=== PATIENT | female | born 1960 | race Caucasian/White ===

== ENCOUNTER 2022-07-27 08:48 | Day surgery (SDC) | payer OTHER ==
[~2022-07-27 08:48] MED LIST: LACTATED RINGERS 1,000 ML IV SCH; LIDOCAINE 1% (10MG/ML) FOR IV START INTRADERMA PRN
[2022-07-27 09:23] VITALS: TEMP 97.7
[2022-07-27] MEDS ORDERED: PROPOFOL 10 MG/ML 20 ML VIAL IV ONE (09:48)
[2022-07-27] MEDS ORDERED: LIDOCAINE 2% INJ 20 MG/ML (2 ML VIAL) ONE (09:48)
--- NOTE | 2022-07-27 10:04 | P.PCN ---
Date of Procedure: 07/27/22 Procedure(s) Performed: BRIEF HISTORY: Patient is a 62-year-old, pleasant, female scheduled for an upper endoscopy as a part of evaluation of long-standing history of GERD. She was on omeprazole 20 mg daily but recently hasn't resume progressively getting worse he was increased to 20 mg twice daily and symptoms are better controlled she is scheduled for an upper endoscopy to accommodate reflux disease PROCEDURE PERFORMED: Esophagogastroduodenoscopy With biopsy PREOPERATIVE DIAGNOSIS: Long-standing history of GERD IV sedation per anesthesia. PROCEDURE: After informed consent was obtained, the patient was brought into the endoscopy unit. IV sedation was administered by Anesthesia under continuous monitoring. Initially the Olympus GIF-140 video endoscope was inserted into the mouth. Esophagus intubated without any difficulty. It was gradually advanced into the stomach and duodenum and carefully examined. The bulb and the second part of the duodenum appeared normal. The scope at this time was withdrawn to the stomach, adequately insufflated with air, and upon careful examination, mucosa of the antrum, body, cardia and the fundus appeared normal. The scope was then withdrawn into the esophagus. The GE junction was located at 35 cm from the incisors. small hiatal hernia noted. There were 3 short tongues of Weinberg's appearing mucosa extending to 3 mm proximal to the GE junction which was biopsied. Also there where superficial erosions in the distal esophagus consistent with LA grade B reflux esophagitis. Rest of esophagus appeared normal and the patient tolerated the procedure IMPRESSION: 1. 3 small tongues of Weinberg's appearing mucosa just proximal to the GE junction and extending to 3 cm proximally status post multiple biopsies 2. Small hiatal hernia 3. Erosions in the distal esophagus consistent with LA grade B reflux esophageal. RECOMMENDATIONS: The findings of this examination were discussed with the patient as well as a family. She was advised to follow with the biopsy results. If the biopsy confirms the presence of Weinberg's esophagus he can have a repeat upper endoscopy in 3 years. In the meantime she will continue with omeprazole 20 mg twice daily and follow antireflux measures. She was advised to follow up in office in 3 months..
[2022-07-27 10:12] VITALS: RESP 16
[2022-07-27 10:32] VITALS: BP 135/83; PULSE 67
== END 2022-07-27 10:49 | disposition home or self-care (01) ==
LOC: ORWHC2ENDO 08:48
PROVIDERS: ATTEND Internal Medicine Gastroenterology
DX: K31.89 Other diseases of stomach and duodenum (principal); K31.A0 Gastric intestinal metaplasia, unspecified; K21.00 Gastro-esophageal reflux disease with esophagitis, without bleeding; K44.9 Diaphragmatic hernia without obstruction or gangrene; I10 Essential (primary) hypertension; J45.909 Unspecified asthma, uncomplicated; E03.9 Hypothyroidism, unspecified; Z88.2 Allergy status to sulfonamides; Z79.890 Hormone replacement therapy; Z79.51 Long term (current) use of inhaled steroids; Z79.899 Other long term (current) drug therapy
CPT/HCPCS: 88305; 43239; J2704; J2001

== ENCOUNTER → 2022-10-17 | Outpatient (CLI) | payer OTHER ==
[2022-10-17 22:57] LABS: ALT 32 U/L (8-49); AST 22 U/L (13-35); Albumin 4.5 d/dL (3.8-4.9); Albumin/Globulin Ratio 1.96 Ratio (1.60-3.17); Alkaline Phosphatase 98 U/L (41-126); Calcium 9.8 mg/dL (8.7-10.3); Carbon Dioxide 26.5 mmol/L (21.6-31.8); Chloride 106 mmol/L (96-109); Globulin 2.3 d/dL (1.6-3.3); Glucose 99 mg/dL (70-110); Potassium 4.6 mmol/L (3.5-5.5); Sodium 145 mmol/L (135-145); Total Bilirubin 0.4 mg/dL (0.3-1.2); Total Protein 6.8 d/dL (6.2-8.2)
[2022-10-17 23:16] LABS: MCH 28.3 pg (27.0-32.0); MCHC 31.8 d/dL (32.0-37.0); MCV 89.1 FL (80.0-97.0); NRBC Per 100 WBC 0 X 10*3/uL (0.00-0.01); Platelet Count 269 X 10*3/uL (140-440); RBC 4.94 X 10*6/uL (4.10-5.60); RDW 12.8 % (11.5-14.5); WBC 6.41 X 10*3/uL (4.50-10.00)
== END | disposition home or self-care (01) ==
LOC: LABWHC1 14:40
PROVIDERS: ATTEND Surgery
DX: E66.01 Morbid (severe) obesity due to excess calories (principal); E55.9 Vitamin D deficiency, unspecified
CPT/HCPCS: 36415; 80053; 82306; 82607; 82746; 84425; 85027

== ENCOUNTER → 2022-10-17 | Outpatient (CLI) | payer OTHER ==
[2022-10-17 14:22] VITALS: BP 142/94; PULSE 80; TEMP 98.2; BMI 36.3
--- NOTE | 2022-11-14 08:46 | P.HPBAR ---
Bariatric H&P - History & Physicial H&P Date: 10/17/22 History & Physicial: Visit/CC: new patient consult Patient initial contact: Initial weight: Initial weight in pounds: Height: 5 ft 2.5 in Initial BMI: Last weight: Current weight: 91.626 kg Current weight in pounds: 202.00 Current BMI: 36.3 [place] body weight (based on NIH guidelines): 51.029 kg Excess body weight loss: The patient is a 62 year-old F who presents for Bariatric Assessment. This is a 62-year-old female who's had lifetime problems obesity. The patient wishes undergo gastric sleeve surgery. Patient that she's been unable to lose weight and conservative fashion. The patient has an excellent understanding of sleeve gastrectomy. She understands the risks and benefits of procedure including gastric injury, sleeve scarring perforation or obstruction. 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, History of Any Multi-Drug Resistant Organisms: None Reported Past Surgical History: Adenoidectomy, Appendectomy, Tonsillectomy Additional Past Surgical History / Comment(s): ectopic pregnanacy x2 d&c laprascopic surgery, colonoscopy Past Anesthesia/Blood Transfusion Reactions: No Reported Reaction Past Psychological History: Depression Smoking Status: Former smoker Past Alcohol Use History: Rare Additional Past Alcohol Use History / Comment(s): quit 1992 Past Drug Use History: None Reported Surgical - Exam Vital Signs Temp Pulse BP 98.2 F 80 142/94 10/17/22 14:15 10/17/22 14:15 10/17/22 14:15 - General well developed, well nourished, no distress - Eyes PERRL - ENT normal pinna - Neck no masses - Respiratory normal expansion - Cardiovascular Rhythm: regular - Abdomen Abdomen: soft, non tender Bariatric Assessment & Plan Plan: Morbid obesity. Patient be scheduled for EGD. She will follow-up after this is performed. Bariatric Checklist Checklist: Plan: Checklist: EGD: 1. Hiatal hernia: 2. H. Pylori: HgbA1c: Vitamin D: Smoking: Primary care physician referral: [facility] Psychiatry clearance: Cardiology clearance: Sleep study: Diet journal: VTE risk score: VTE risk level: Rehab needs at discharge:
== END ==
LOC: BARWHC3 13:52
PROVIDERS: ATTEND Surgery
DX: E66.01 Morbid (severe) obesity due to excess calories (principal); J45.909 Unspecified asthma, uncomplicated; I10 Essential (primary) hypertension; K21.9 Gastro-esophageal reflux disease without esophagitis; E07.9 Disorder of thyroid, unspecified; Z68.36 Body mass index [BMI] 36.0-36.9, adult; Z98.84 Bariatric surgery status; Z88.2 Allergy status to sulfonamides; Z79.890 Hormone replacement therapy; Z79.899 Other long term (current) drug therapy; Z79.51 Long term (current) use of inhaled steroids; Z87.891 Personal history of nicotine dependence
CPT/HCPCS: 99212

== ENCOUNTER 2022-11-21 12:53 | Day surgery (SDC) | payer OTHER ==
[2022-11-16 15:31] VITALS: BMI 36.3
[~2022-11-21 12:53] MED LIST changes: -LACTATED RINGERS 1,000 ML IV SCH
[2022-11-21 13:17] VITALS: RESP 16; TEMP 97.7
[2022-11-21] MEDS: LACTATED RINGERS 1,000 ML IV SCH ×2 (13:20→13:39)
[2022-11-21] MEDS ORDERED: PROPOFOL 10 MG/ML 20 ML VIAL IV ONE (13:39)
[2022-11-21] MEDS ORDERED: LIDOCAINE 2% INJ 20 MG/ML (2 ML VIAL) ONE (13:39)
--- NOTE | 2022-11-21 13:44 | P.GSHP ---
History of Present Illness H&P Date: 11/21/22 Chief Complaint: morbid obesity GERD this is a 62-year-old female presents today for EGD. Patient underwent workup for sleeve gastrectomy. Her BMI is 36. She's had complaints of GERD. 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 vertigo History of Any Multi-Drug Resistant Organisms: None Reported Past Surgical History: Adenoidectomy, Appendectomy, Tonsillectomy Additional Past Surgical History / Comment(s): ectopic pregnanacy x2, d&c, laparoscopic surgery, colonoscopies Past Anesthesia/Blood Transfusion Reactions: No Reported Reaction Additional Past Anesthesia/Blood Transfusion Reaction / Comment(s): hx of vertigo Past Psychological History: Depression Smoking Status: Former smoker Past Alcohol Use History: Rare Additional Past Alcohol Use History / Comment(s): quit 1992 Past Drug Use History: None Reported Medications and Allergies Home Medications Medication Instructions Recorded Confirmed Type Cetirizine HCl 10 mg PO DAILY 07/22/22 11/16/22 History Ergocalciferol (Vitamin D2) 1,250 mcg PO WEEKLY 07/22/22 11/16/22 History [Drisdol (50,000 Iu)] Levothyroxine Sodium [Synthroid] 50 mcg PO DAILY 07/22/22 11/16/22 History Omeprazole 20 mg PO DAILY 07/22/22 11/16/22 History amLODIPine [Norvasc] 5 mg PO DAILY 07/22/22 11/16/22 History lisinopriL [Zestril] 10 mg PO DAILY 07/22/22 11/16/22 History Allergies Allergy/AdvReac Type Severity Reaction Status Date / Time Sulfa (Sulfonamide Allergy Rash/Hives Verified 11/16/22 15:26 Antibiotics) Surgical - Exam Vital Signs Temp Pulse Resp BP Pulse Ox 97.7 F 75 16 139/66 99 11/21/22 13:11 11/21/22 13:11 11/21/22 13:11 11/21/22 13:11 11/21/22 13:11 - General well developed, well nourished, no distress - Eyes PERRL - ENT normal pinna - Neck no masses - Respiratory normal expansion - Cardiovascular Rhythm: regular - Abdomen Abdomen: soft, non tender Assessment and Plan Assessment: GERD, morbid obese. We'll perform EGD.
--- NOTE | 2022-11-21 13:51 | P.OP ---
Date of Procedure: 11/21/22 Preoperative Diagnosis: GERD Morbid obesity Postoperative Diagnosis: antral gastritis Hiatal hernia Morbid obesity Procedure(s) Performed: EGD Anesthesia: MAC Surgeon: Kaushal Mead Pathology: other (antrum) Condition: stable Disposition: PACU Description of Procedure: the patient's placed on the endoscopy table in the lateral position. she received IV sedation. The gastroscope placed oropharynx passed in the esophagus and stomach. Scope then placed through the pylorus. The first and second p ortion of the duodenum appeared normal. Scope was then brought back the antrum was mildly inflamed. A biopsies performed. The scope was then retroflexed and this appeared normal. The patient had a moderate size hiatal hernia. The GE junction was at 38 cm. The distal esophagus appeared mildly inflamed. the proximal esophagus appeared normal. Scope withdrawn for patient.
[2022-11-21 13:54] VITALS: PULSE 72
[2022-11-21 14:05] VITALS: BP 108/70
== END 2022-11-21 14:47 | disposition home or self-care (01) ==
LOC: ORWHC2ENDO 12:53
PROVIDERS: ATTEND Surgery
DX: K29.50 Unspecified chronic gastritis without bleeding (principal); K21.9 Gastro-esophageal reflux disease without esophagitis; K44.9 Diaphragmatic hernia without obstruction or gangrene; J45.909 Unspecified asthma, uncomplicated; M19.90 Unspecified osteoarthritis, unspecified site; E66.01 Morbid (severe) obesity due to excess calories; Z68.36 Body mass index [BMI] 36.0-36.9, adult; Z90.89 Acquired absence of other organs; Z87.891 Personal history of nicotine dependence; Z79.899 Other long term (current) drug therapy
CPT/HCPCS: 88305; 88342; 43239; J2704; J2001

== ENCOUNTER → 2022-12-12 | Outpatient (CLI) | payer OTHER ==
[2022-12-12 14:42] VITALS: BP 141/85; PULSE 87; TEMP 98.2; BMI 36.5
--- NOTE | 2022-12-12 14:43 | P.HPBAR ---
Bariatric H&P - History & Physicial H&P Date: 12/12/22 History & Physicial: Visit/CC: Patient initial contact: Initial weight: Initial weight in pounds: Height: 5 ft 2.5 in Initial BMI: Last weight: Current weight: 92.079 kg Current weight in pounds: Current BMI: [place] body weight (based on NIH guidelines): Excess body weight loss: The patient is a 62 year-old F who presents for Bariatric Assessment. Patient resents today bariatric presurgical consultation. Patient has completed most of her insurance requirements. Her BMI is 37. Patient scheduled to come to a diet class. Patient is an excellent understanding of sleeve gastrectomy. When over the risks and benefits of the procedure. 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, History of Any Multi-Drug Resistant Organisms: None Reported Past Surgical History: Adenoidectomy, Appendectomy, Tonsillectomy Additional Past Surgical History / Comment(s): ectopic pregnanacy x2 d&c laprascopic surgery, colonoscopy Past Anesthesia/Blood Transfusion Reactions: No Reported Reaction Past Psychological History: Depression Smoking Status: Former smoker Past Alcohol Use History: Rare Additional Past Alcohol Use History / Comment(s): quit 1992 Past Drug Use History: None Reported Surgical - Exam - General well developed, well nourished, no distress - Eyes PERRL - ENT normal pinna, normal nares Bariatric Assessment & Plan Plan: Morbid obesity. BMI 37 37. Patient will be Scheduled for sleeve gastrectomy Bariatric Checklist Checklist: Plan: Checklist: EGD: 1. Hiatal hernia: 2. H. Pylori: HgbA1c: Vitamin D: Smoking: Primary care physician referral: [facility] Psychiatry clearance: Cardiology clearance: Sleep study: Diet journal: VTE risk score: VTE risk level: Rehab needs at discharge:
== END ==
LOC: BARWHC3 14:25
PROVIDERS: ATTEND Surgery
DX: E66.01 Morbid (severe) obesity due to excess calories (principal); J45.909 Unspecified asthma, uncomplicated; K21.9 Gastro-esophageal reflux disease without esophagitis; I10 Essential (primary) hypertension; E07.9 Disorder of thyroid, unspecified; Z79.899 Other long term (current) drug therapy; Z87.891 Personal history of nicotine dependence; Z98.84 Bariatric surgery status; Z68.37 Body mass index [BMI] 37.0-37.9, adult; Z88.2 Allergy status to sulfonamides; Z79.890 Hormone replacement therapy
CPT/HCPCS: 99211

== ENCOUNTER → 2023-01-02 | Outpatient (CLI) | payer OTHER ==
[2023-01-02 11:22] VITALS: BMI 36.8
== END ==
LOC: BARWHC3 08:44
PROVIDERS: ATTEND Surgery
DX: E66.01 Morbid (severe) obesity due to excess calories (principal); Z71.3 Dietary counseling and surveillance; Z68.36 Body mass index [BMI] 36.0-36.9, adult; Z88.2 Allergy status to sulfonamides
CPT/HCPCS: 97804

== ENCOUNTER 2023-01-16 12:56 | Emergency (ER) | payer OTHER ==
[2023-01-16 13:08] VITALS: BP 170/88; PULSE 85; RESP 16; TEMP 98.1
--- NOTE | 2023-01-16 13:31 | XR ---
EXAMINATION TYPE: XR wrist complete LT DATE OF EXAM: 01/16/2023 1:25 PM INDICATION: Patient age:Female; 62 years old; Reason for study: fall; [facility]. COMPARISON: None TECHNIQUE: 4 views of the left wrist. Frontal, navicular, lateral, and oblique. FINDINGS: No dislocation. Acute comminuted impacted fracture of the distal radial metaphysis extendin g into the epiphysis. There is intra-articular extension with shortening. Soft tissue edema identifie d of the wrist. No radiopaque foreign body. IMPRESSION: Acute comminuted fracture of the distal left radius.
--- NOTE | 2023-01-16 14:39 | ED ---
Upper Extremity HPI - General Chief Complaint: Extremity Injury, Upper Stated Complaint: fall- L wrist injury Time Seen by Provider: 01/16/23 14:29 Source: patient, RN notes reviewed Mode of arrival: ambulatory Limitations: no limitations - History of Present Illness Initial Comments: 62-year-old female presents emergency from chief complaint left wrist pain. She states she fell on December 31 states that it was very swollen but has improved but states she still has pain. Patient denies any other injury states it hurts to move at times. Patient states she's never had this evaluated. - Related Data Home Medications Medication Instructions Recorded Confirmed Cetirizine HCl 10 mg PO DAILY 07/22/22 12/12/22 Ergocalciferol (Vitamin D2) 1,250 mcg PO WEEKLY 07/22/22 12/12/22 [Drisdol (50,000 Iu)] Levothyroxine Sodium [Synthroid] 50 mcg PO DAILY 07/22/22 12/12/22 Omeprazole 20 mg PO DAILY 07/22/22 12/12/22 amLODIPine [Norvasc] 5 mg PO DAILY 07/22/22 12/12/22 lisinopriL [Zestril] 10 mg PO DAILY 07/22/22 12/12/22 Allergies Allergy/AdvReac Type Severity Reaction Status Date / Time Sulfa (Sulfonamide Allergy Rash/Hives Verified 01/16/23 13:06 Antibiotics) Review of Systems ROS Statement: Those systems with pertinent positive or pertinent negative responses have been documented in the HPI. ROS Other: All systems not noted in ROS Statement are negative. 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, History of Any Multi-Drug Resistant Organisms: None Reported Past Surgical History: Adenoidectomy, Appendectomy, Tonsillectomy Additional Past Surgical History / Comment(s): ectopic pregnanacy x2 d&c laprascopic surgery, colonoscopy Past Anesthesia/Blood Transfusion Reactions: No Reported Reaction Past Psychological History: Depression Smoking Status: Former smoker Past Alcohol Use History: Rare Past Drug Use History: None Reported General Exam Limitations: no limitations General appearance: alert, in no apparent distress Head exam: Present: atraumatic, normocephalic, normal inspection Respiratory exam: Present: normal lung sounds bilaterally. Absent: respiratory distress, wheezes, rales, rhonchi, stridor Cardiovascular Exam: Present: regular rate, normal rhythm, normal heart sounds. Absent: systolic murmur, diastolic murmur, rubs, gallop, clicks Extremities exam: Present: other (Left distal radius there is tenderness with palpation, mild swelling noted neurovascular intact) Course Vital Signs 01/16/23 13:06 Temperature 98.1 F Pulse Rate 85 Respiratory 16 Rate Blood Pressure 170/88 O2 Sat by Pulse 98 Oximetry Procedures - Orthopedic Splinting/Casting Injury #1 Side: left Upper Extremity Injury Location: short arm, wrist Upper Extremity Immobilizer: volar splint, synthetic pre-padded splint Additional Comments: Neurovascular intact before and after procedure Medical Decision Making - Medical Decision Making Was pt. sent in by a medical professional or institution (Dr. PA, COACH OPERATOR, urgent care, hospital, or half-way...) When possible be specific @ -No Did you speak to anyone other than the patient for history (EMS, parent, family, police, friend...)? What history was obtained from this source @ -No Did you review nursing and triage notes (agree or disagree)? Why? @ -I reviewed and agree with nursing and triage notes Were old charts reviewed (outside hosp., previous admission, EMS record, old EKG, old radiological studies, urgent care reports/EKG's, half-way records)? Report findings @ -No old charts were reviewed Differential Diagnosis (chest pain, altered mental status, abdominal pain women, abdominal pain men, vaginal bleeding, weakness, fever, dyspnea, syncope, headache, dizziness, GI bleed, back pain, seizure, CVA, palpatations, mental health, musculoskeletal)? @ -Wrist sprain, wrist fracture EKG interpreted by me (3pts min.). @ -None X-rays interpreted by me (1pt min.). @ -X-ray left wrist shows distal radius comminuted fracture CT interpreted by me (1pt min.). @ -None done U/S interpreted by me (1pt. min.). @ -None done What testing was considered but not performed or refused? (CT, X-rays, U/S, labs)? Why? @ -None What meds were considered but not given or refused? Why? @ -None Did you discuss the management of the patient with other professionals (professionals i.e. , PA, COACH OPERATOR, lab, RT, psych nurse, manager social services, gambling monitor, teacher, radiation officer, case management associate)? Give summary @ -No Was smoking cessation discussed for >3mins.? @ -No Was critical care preformed (if so, how long)? @ -No Were there social determinants of health that impacted care today? How? (Homelessness, low income, unemployed, alcoholism, drug addiction, transpo rtation, low edu. Level, literacy, decrease access to med. care, shelter, rehab)? @ -No Was there de-escalation of care discussed even if they declined (Discuss DNR or withdrawal of care, Hospice)? DNR status @ -No What co-morbidities impacted this encounter? (DM, HTN, Smoking, COPD, CAD, Cancer, CVA, ARF, Chemo, Hep., AIDS, mental health diagnosis, sleep apnea, morbid obesity)? @ -None Was patient admitted / discharged? Hospital course, mention meds given and route, prescriptions, significant lab abnormalities, going to OR and other pertinent info. @ -Discharge patient wrist was splinted patient will follow-up with orthopedics return parameters were discussed. Undiagnosed new problem with uncertain prognosis? @ -No Drug Therapy requiring intensive monitoring for toxicity (Heparin, Nitro, Insulin, Cardizem)? @ -No Were any procedures done? @ -Splinting Diagnosis/symptom? @ -Acute distal radius fracture Acute, or Chronic, or Acute on Chronic? @ -Acute Uncomplicated (without systemic symptoms) or Complicated (systemic symptoms)? @ -Uncomplicated Side effects of treatment? @ -No Exacerbation, Progression, or Severe Exacerbation? @ -No Poses a threat to life or bodily function? How? (Chest pain, [place], [place], pneumonia, PE, COPD, DKA, ARF, appy, cholecystitis, CVA, Diverticulitis, Homicidal, Suicidal, threat to staff... and all critical care pts) @ -No Disposition Clinical Impression: Fracture of left distal radius Disposition: HOME SELF-CARE Condition: Stable Instructions (If sedation given, give patient instructions): Arm Fracture in Adults (ED) Additional Instructions: Please return to the Emergency Department if symptoms worsen or any other concerns. Is patient prescribed a controlled substance at d/c from ED?: No Referrals: Farrah Desouza MD [Primary Care Provider] - 1-2 days Juan R Ames DO [Doctor of Osteopathic Medicine] - 1-2 days Time of Disposition: 14:39
== END 2023-01-16 15:10 | disposition home or self-care (01) ==
LOC: EC 12:56
DX: S52.592A Other fractures of lower end of left radius, initial encounter for closed fracture (principal); J45.909 Unspecified asthma, uncomplicated; K21.9 Gastro-esophageal reflux disease without esophagitis; E07.9 Disorder of thyroid, unspecified; F32.A Depression, unspecified; Z87.891 Personal history of nicotine dependence; Z79.890 Hormone replacement therapy; Z79.899 Other long term (current) drug therapy; W19.XXXA Unspecified fall, initial encounter
CPT/HCPCS: 29125; 99284

== ENCOUNTER → 2023-01-17 | Outpatient (CLI) | payer OTHER ==
--- NOTE | 2023-01-17 13:22 | CT ---
EXAMINATION TYPE: CT wrist LT wo con DATE OF EXAM: 01/17/2023 COMPARISON: Plain films 01/16/2023 HISTORY: left wrist pain from fall CT DLP: 149.[address] of the left wrist with reconstruction imaging. TECHNIQUE: Unenhanced CT of the breast was performed with bone and soft tissue window settings submit aj in the axial coronal and sagittal planes. At a separate workstation 3-D TR imaging was obtained. FINDINGS: The graft there is a comminuted distal radial fracture with intra-articular extension. Frac ture fragment with the greatest displacement is seen in a palmar direction with 8mm displacement seen . There is surrounding soft tissue edema. No additional fractures are seen. There is radiocarpal join t space narrowing seen. Intercarpal joint spaces are well preserved. Distal ulna is intact. IMPRESSION: 1. Comminuted and displaced distal radial fracture as discussed.
== END | disposition home or self-care (01) ==
LOC: RADCTMAIN 12:43
PROVIDERS: ATTEND Orthopaedic Surgery Hand Surgery
DX: S52.592A Other fractures of lower end of left radius, initial encounter for closed fracture (principal); W19.XXXA Unspecified fall, initial encounter

== ENCOUNTER → 2023-01-20 | Day surgery (SDC) | payer OTHER ==
--- NOTE | 2023-01-19 11:19 | P.HPOR ---
History of Present Illness H&P Date: 01/19/23 Subjective: This is a 62 year old female that presents today for initial evaluation regarding a left wrist injury that occurred on 12/31/2022 when she fell onto an outstretched hand at a reunion. She noted pain and swelling at the time of the injury, but didn't think much of the injury and had continued pain and limited range of motion over the following weeks and subsequently went to the emergency room tonight after 3 weeks later. She was found to have a distal radius fra cture and was placed in a splint and presents today for initial follow-up. She is 3 weeks out from her injury. She denies any numbness or tingling. Physical Examination: LUE: AIN/PIN/Radial/Ulnar/Median motor intact. Radial/Ulnar/Median SILT. 2+/4 Radial/Ulnar pulses palpated. 5/5 APB, 5/5 FDI. Negative Finkelsteins, negative CMC grind, negative Durkan's compression. Tenderness to palpation over distal radius with bruising and swelling present. Imaging: X-Rays of the left wrist, 3 view reviewed from ED visit on 01/16/2023 demonstrates a comminuted intra-articular distal radius fracture involving the volar lunate facet and radial styloid with displacement. Impression: 1.) Left intra-articular distal radius fracture Plan: Diagnosis and treatment options were discussed with the patient. We discussed she has findings of an unstable left intra-articular distal radius fracture. I recommend surgical intervention. We discussed the complexity of her injury now that she is 3 weeks out from her injury. We discussed she will likely require fragment specific fixation to restore the volar lunate facet as well as radial styloid fragment. 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 CT scan is ordered for pre operative planning. Labs/EKG are ordered. CC: Dr. 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, vertigo, History of Any Multi-Drug Resistant Organisms: None Reported Past Surgical History: Adenoidectomy, Appendectomy, Tonsillectomy Additional Past Surgical History / Comment(s): ectopic pregnanacy x2 d&c laprascopic surgery, colonoscopy x2 Past Anesthesia/Blood Transfusion Reactions: No Reported Reaction Smoking Status: Former smoker Medications and Allergies Home Medications Medication Instructions Recorded Confirmed Type Cetirizine HCl 10 mg PO DAILY 07/22/22 01/18/23 History Ergocalciferol (Vitamin D2) 1,250 mcg PO WEEKLY 07/22/22 01/18/23 History [Drisdol (50,000 Iu)] Levothyroxine Sodium [Synthroid] 50 mcg PO DAILY 07/22/22 01/18/23 History Omeprazole 20 mg PO DAILY 07/22/22 01/18/23 History amLODIPine [Norvasc] 5 mg PO DAILY 07/22/22 01/18/23 History lisinopriL [Zestril] 10 mg PO DAILY 07/22/22 01/18/23 History Meclizine [Antivert] 12.5 mg PO DIRECTED 01/18/23 01/18/23 History Allergies Allergy/AdvReac Type Severity Reaction Status Date / Time Sulfa (Sulfonamide Allergy Rash/Hives Verified 01/18/23 13:05 Antibiotics) Physical Examination Osteopathic Statement: *. No significant issues noted on an osteopathic structural exam other than those noted in the History and Physical/Consult.
[~2023-01-20] MED LIST changes: +DEXAMETHASONE SOD PHOSPHATE 4 MG/ML 1 ML VIAL IV ONE; +DEXAMETHASONE SOD PHOSPHATE 4 MG/ML 1 ML VIAL ONE; +HYDROmorphone (PF) 1 MG/ML ONE; +HYDROmorphone 0.5 MG/0.5 ML SYRINGE IVP PRN; +LACTATED RINGERS 1,000 ML IV ONE; +LACTATED RINGERS 1,000 ML IV SCH; +LIDOCAINE 2% INJ 20 MG/ML (2 ML VIAL) ONE; +MIDAZOLAM 2 MG/2 ML VIAL IV PRN; +MIDAZOLAM 2 MG/2 ML VIAL IVP ONE; +ONDANSETRON 4 MG/2 ML VIAL IVP ONE; +PROPOFOL 10 MG/ML 20 ML VIAL IV ONE; +ROPIVACAINE 5 MG/ML 30 ML VIAL ONE; +SUCCINYLCHOLINE CHLORIDE 200 MG/10 ML VIAL IV ONE; +ceFAZolin 1,000 MG in SODIUM CHLORIDE 0.9% 1,000 ML IRRIGATION ONE; +ePHEDrine 50 MG/ML 1 ML VIAL ONE; +fentaNYL (PF) 50 MCG/ML 2 ML AMP ONE
--- NOTE | 2023-01-20 13:20 | P.ANPRN ---
Procedure Note - Anesthesia - Nerve Block Performed Left Supraclavicular Single Time Out Performed: Yes Date of Procedure: 01/20/23 Procedure Start Time: 12:09 Procedure Stop Time: 12:12 Location of Patient: PreOp Indication: Acute Post-Operative Pain, Requested by Surgeon Sedation Type: Sedate with meaningful contact maintained Preparation: Sterile Prep Position: Supine Needle Types: [place] Needle Gauge: 21 Ultrasound used to visualize needle placement: Yes Ultrasound used to observe medication spread: Yes Blood Aspirated: No Pain Paresthesia on Injection Noted: No Resistance on Injection: Normal Image Stored and Saved: Yes Events: Uneventful and Well Tolerated (Ropivacaine 0.5% 20 mL plus dexamethasone 4 mg)
[2023-01-20 15:28] VITALS: TEMP 97.2
--- NOTE | 2023-01-20 15:45 | P.OP ---
Date of Procedure: 01/20/23 Preoperative Diagnosis: Left intra-articular distal radius fracture Postoperative Diagnosis: Left intra-articular distal radius fracture Procedure(s) Performed: Left intra-articular distal radius fracture open reduction internal fixation, greater than 3 parts. Implants: Arthrex Volar titanium distal radius locking plate, short, narrow. Anesthesia: [facility], regional Surgeon: Sergey Romero Support Group Manager #1: Juvenal Marshall Estimated Blood Loss (ml): 10 Pathology: none sent Condition: stable Disposition: PACU Description of Procedure: This is a 62 year old female who sustained a displaced intra-articular distal radius fracture and presents today for open reduction internal fixation of their left distal radius fracture. Risks and benefits of surgery were discussed with the patient including bleeding, damage to surrounding tissue, infection, need for further surgery as well as risks of anesthesia including pulmonary embolism and even and the patient wished to proceed with surgical intervention. The patients was seen in the pre-operative area by myself. Consent and H&P were completed and updated. The correct extremity was marked in the pre-operative area by myself and all other questions were answered. Operative Narrative: The patient was brought to the operating room by the department of anesthesia. They remained on the portable stretcher and a rolling hand table was brought to the side of the operative extremity. Pre-operative time out was performed indicating the correct patient, procedure and laterality. All in the room agreed. Pre-operative antibiotics were given prior to skin incision. The patient was then drifted off to sleep by the department of anesthesia. A nonsterile tourniquet was then applied to the operative extremity and the left upper extremity was then prepped and draped in normal sterile fashion. The operative extremity was the exsanguinated with an esmarch bandage and the tourniquet was inflated to 250mmHg. A longitudinal incision centered over the FCR tendon was made with a 15-blade scalpel to initiate an extended FCR approach to the distal radius due to the distal location of the fracture. Blunt dissection was taken down to the FCR tendon sheath using Bovie cautery for meticulous hemostasis. The FCR sheath was opened with tenotomy scissors. The floor of the FCR sheath was then incised with a 15-blade scalpel and the FPL tendon and muscle belly was swept bluntly in an ulnar direction to reveal the pronator quadratus. Pronator quadratus was sharply incised with a 15-blade scalpel along the radial border of the distal radius, coming across transversely parallel to the joint at the level of the watershed line, radial artery was identified and protected. Periosteal elevator was then used to elevate the pronator quadratus off the distal radius from a radial to ulnar fashion. There was evidence of a very comminuted radial styloid with 3 main fragments. The brachoradialis tendon was identified and released while protecting the contents of the first dorsal compartment and radial artery to take the deforming force off of the radial styloid fragement. Attention was then drawn to the volar ulnar corner. There was a large intra-articular volar ulnar fragement with displacement and abundant fibrous and early callous tissues. Ronguer, irrigation and suction was used to evacuate the fibrous tissue to debride the fracture fragment to fresh bone. Once the fracture was was clear the fragement was able to be mobilized and with gentle traction the volar ulnar fragment was able to be reduced. A narrow width 3 hole Arthrex titanium volar locking distal radius plate was chosen to fit the patients anatomy best. This was placed on the distal radius under direct visualization and the oblong hole was drilled and filled with a non-locking screw. The fracture was then reduced to the plate distally and a k-wire was placed in the ulnar most k-wire hole in the proximal row and this provided great coverage over the entire volar lunate facet fragment. Fluoroscopy was then utilized to confirm correct placement of plate in the radial/ulnar plane and distal k-wire placement was confirmed to be proximal to the subchondral bone on 20 degree elevated lateral view confirming extra-articular screw placement. Voodoo of radial height, inclination and volar tilt was achieved and the joint line was no longer depressed on the 20 degree elevated lateral view confirming acceptable buttressing of the volar ulnar fragment, the wrist was flexed and extended and the carpus was now stable and no longer volarly subluxed. The distal rows and radial styloid screw holes were then drilled and filled from ulnar to radial with locking screws. Attention was then brought to the proximal shaft screws. Proximal nonlocking and locking shaft screws were drilled, measured, and filled. The wrist joint was the ranged and full smooth flexion/extension with no crepitus appreciated. Final imaging was taken confirming extra-articular placement of distal screws at DRUJ and radiocarpal joint. The wound was then irrigated. Subcutaneous closure was performed with 4-0 monocryl followed by skin closure with running 4-0 monocryl suture. Sterile dressing consisting of steri strips, 4x4s, and a volar plaster splint was applied. Tourniquet was let down and the hand had immediate perfusion. The patient was then woken by the department of anesthesia and ham sferred to PACU in stable condition. Juvenal LEYVA was present for the case and assisted in major portions of the operation and hardware placement. Sergey Romero D.O. Orthopedic Hand/Upper Extremity Surgeon
[2023-01-20 18:12] VITALS: BP 132/79; PULSE 97; RESP 18
== END | disposition home or self-care (01) ==
LOC: OR 10:40
PROVIDERS: ATTEND Orthopaedic Surgery Hand Surgery
DX: S52.572A Other intraarticular fracture of lower end of left radius, initial encounter for closed fracture (principal); G89.18 Other acute postprocedural pain; J45.909 Unspecified asthma, uncomplicated; K21.9 Gastro-esophageal reflux disease without esophagitis; I10 Essential (primary) hypertension; E07.9 Disorder of thyroid, unspecified; Z90.49 Acquired absence of other specified parts of digestive tract; Z90.89 Acquired absence of other organs; Z98.890 Other specified postprocedural states; Z87.891 Personal history of nicotine dependence; Z79.890 Hormone replacement therapy; Z79.899 Other long term (current) drug therapy; X58.XXXA Exposure to other specified factors, initial encounter
CPT/HCPCS: 64415; 25609; C1713; J2250; J0330; J1100; J0690 ×2; J2405; J3010; J1170; J2795; J2704; J2001

== ENCOUNTER → 2023-05-15 | Outpatient (CLI) | payer OTHER ==
[2023-05-15 15:31] LABS: ALT 53 U/L (8-49); AST 30 U/L (13-35); Albumin 4.6 g/dL (3.8-4.9); Alkaline Phosphatase 99 U/L (41-126); BUN/Creat Ratio 28.25 Ratio (12.00-20.00); Basophils # (A) 0.04 X 10*3/uL (0.00-0.10); Basophils % (A) 0.6 %; Blood Urea Nitrogen 22.6 mg/dL (9.0-27.0); Calcium 10.1 mg/dL (8.7-10.3); Chloride 103 mmol/L (96-109); Eosinophils # (A) 0.09 X 10*3/uL (0.04-0.35); Eosinophils % (A) 1.3 %; Globulin 2.3 g/dL (1.6-3.3); Glucose 106 mg/dL (70-110); HCT 42.9 % (37.2-50.0); HGB 14.1 g/dL (12.0-17.0); Lymphocytes # (A) 1.63 X 10*3/uL (0.90-5.00); Lymphocytes % (A) 23.9 %; MCH 29.2 pg (27.0-32.0); MCHC 32.9 g/dL (32.0-37.0); MCV 88.8 FL (80.0-97.0); Mean Platelet Volume 9.6 FL (9.5-12.2); Monocytes # (A) 0.43 X 10*3/uL (0.20-1.00); Monocytes % (A) 6.3 %; NRBC Per 100 WBC 0 X 10*3/uL (0.00-0.01); Neutrophils % (A) 67.3 %; Platelet Count 298 X 10*3/uL (140-440); Potassium 4.1 mmol/L (3.5-5.5); RBC 4.83 X 10*6/uL (4.10-5.60); Sodium 141 mmol/L (135-145); Total Bilirubin 0.6 mg/dL (0.3-1.2); Total Protein 6.9 g/dL (6.2-8.2); WBC 6.83 X 10*3/uL (4.50-10.00)
== END | disposition home or self-care (01) ==
LOC: LABPAT 10:18
PROVIDERS: ATTEND Surgery
DX: Z01.818 Encounter for other preprocedural examination (principal); I49.8 Other specified cardiac arrhythmias; R94.31 Abnormal electrocardiogram [ECG] [EKG]
CPT/HCPCS: 80053; 85025; 93005

== ENCOUNTER → 2023-05-15 | Outpatient (CLI) | payer MEDICARE, OTHER ==
[2023-05-15 10:20] VITALS: BP 152/97; PULSE 87; TEMP 98.1; BMI 35.2
--- NOTE | 2023-06-27 12:44 | P.HPBAR ---
Bariatric H&P - History & Physicial H&P Date: 05/15/23 History & Physicial: Visit/CC: pre-surgical Patient initial contact: Initial weight: Initial weight in pounds: Height: 5 ft 2.5 in Initial BMI: Last weight: Current weight: 88.904 kg Current weight in pounds: 196.00 Current BMI: 35.2 [place] body weight (based on NIH guidelines): 51.029 kg Excess body weight loss: The patient is a 63 year-old F who presents for Bariatric Assessment. Presents today for surgical consultation. Patient will be scheduled for sleeve gastrectomy. Patient is 8 pounds since her last visit. She has an excellent understanding of sleeve gastrectomy. 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, vertigo, History of Any Multi-Drug Resistant Organisms: None Reported Past Surgical History: Adenoidectomy, Appendectomy, Tonsillectomy Additional Past Surgical History / Comment(s): ectopic pregnanacy x2 d&c laprascopic surgery, colonoscopy x2 Past Anesthesia/Blood Transfusion Reactions: No Reported Reaction Past Psychological History: Depression Smoking Status: Former smoker Past Alcohol Use History: Rare Additional Past Alcohol Use History / Comment(s): quit 1992 Past Drug Use History: None Reported Surgical - Exam Vital Signs Temp Pulse BP 98.1 F 87 152/97 05/15/23 10:14 05/15/23 10:14 05/15/23 10:14 - General well developed, well nourished - Eyes PERRL - ENT normal pinna - Neck no masses - Abdomen Abdomen: soft, non tender Bariatric Assessment & Plan Plan: morbid obesity 6. Patient being scheduled for sleeve gastrectomy. Bariatric Checklist Checklist: Plan: Checklist: EGD: 1. Hiatal hernia: 2. H. Pylori: HgbA1c: Vitamin D: Smoking: Primary care physician referral: [facility] Psychiatry clearance: Cardiology clearance: Sleep study: Diet journal: VTE risk score: VTE risk level: Rehab needs at discharge:
== END ==
LOC: BARWHC3 09:44
PROVIDERS: ATTEND Surgery
DX: E66.01 Morbid (severe) obesity due to excess calories (principal); K21.9 Gastro-esophageal reflux disease without esophagitis; I10 Essential (primary) hypertension; E07.9 Disorder of thyroid, unspecified; J45.909 Unspecified asthma, uncomplicated; M48.061 Spinal stenosis, lumbar region without neurogenic claudication; Z87.891 Personal history of nicotine dependence; Z88.2 Allergy status to sulfonamides; Z68.35 Body mass index [BMI] 35.0-35.9, adult; Z79.899 Other long term (current) drug therapy; Z79.890 Hormone replacement therapy
CPT/HCPCS: 99211

== ENCOUNTER 2023-05-22 07:30 | Inpatient (IN) | payer MEDICARE, OTHER ==
[2023-05-16 12:40] VITALS: BMI 34.7
[~2023-05-22 07:30] MED LIST changes: -DEXAMETHASONE SOD PHOSPHATE 4 MG/ML 1 ML VIAL IV ONE; -DEXAMETHASONE SOD PHOSPHATE 4 MG/ML 1 ML VIAL ONE; +ENOXAPARIN 40 MG/0.4 ML SYRINGE SQ PRN; -HYDROmorphone (PF) 1 MG/ML ONE; -HYDROmorphone 0.5 MG/0.5 ML SYRINGE IVP PRN; -LACTATED RINGERS 1,000 ML IV ONE; -LACTATED RINGERS 1,000 ML IV SCH; -LIDOCAINE 1% (10MG/ML) FOR IV START INTRADERMA PRN; -LIDOCAINE 2% INJ 20 MG/ML (2 ML VIAL) ONE; -MIDAZOLAM 2 MG/2 ML VIAL IV PRN; -MIDAZOLAM 2 MG/2 ML VIAL IVP ONE; -ONDANSETRON 4 MG/2 ML VIAL IVP ONE; -PROPOFOL 10 MG/ML 20 ML VIAL IV ONE; -ROPIVACAINE 5 MG/ML 30 ML VIAL ONE; -SUCCINYLCHOLINE CHLORIDE 200 MG/10 ML VIAL IV ONE; -ceFAZolin 1,000 MG in SODIUM CHLORIDE 0.9% 1,000 ML IRRIGATION ONE; -ePHEDrine 50 MG/ML 1 ML VIAL ONE; -fentaNYL (PF) 50 MCG/ML 2 ML AMP ONE
[2023-05-22] MEDS ORDERED: ONDANSETRON 4 MG/2 ML VIAL IVP ONE (07:45)
[2023-05-22] MEDS ORDERED: LIDOCAINE 1% (10MG/ML) FOR IV START INTRADERMA PRN (07:45)
[2023-05-22] MEDS ORDERED: DEXAMETHASONE SOD PHOSPHATE 4 MG/ML 1 ML VIAL IV ONE (07:45)
[2023-05-22] MEDS ORDERED: MIDAZOLAM 2 MG/2 ML VIAL IV PRN (07:45)
[2023-05-22] MEDS ORDERED: LACTATED RINGERS 1,000 ML IV ONE (09:05)
--- NOTE | 2023-05-22 09:19 | P.GSHP ---
History of Present Illness H&P Date: 05/22/23 Chief Complaint: Morbid obesity This is a 62-year-old female presents today for arthroscopic sleeve gastric. Patient's BMI 35. Patient's lifetime problems morbid obesity. 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 ORIF LT WRIST Past Anesthesia/Blood Transfusion Reactions: No Reported Reaction Smoking Status: Former smoker - Past Family History Mother Family Medical History: Cancer Sister(s) Family Medical History: Cancer Medications and Allergies Home Medications Medication Instructions Recorded Confirmed Type Cetirizine HCl 10 mg PO DAILY 07/22/22 05/16/23 History Levothyroxine Sodium [Synthroid] 75 mcg PO DAILY 07/22/22 05/16/23 History Omeprazole 20 mg PO DAILY 07/22/22 05/16/23 History amLODIPine [Norvasc] 5 mg PO DAILY 07/22/22 05/16/23 History lisinopriL [Zestril] 10 mg PO DAILY 07/22/22 05/16/23 History Albuterol Inhaler [Ventolin Hfa 1 - 2 puff INHALATION Q6H PRN 05/16/23 05/16/23 History Inhaler] Budesonide/Formoterol Fumarate 1 puff INHALATION DAILY 05/16/23 05/16/23 History [Symbicort 160-4.5 Mcg Inhaler] Meclizine [Antivert] 25 mg PO DAILY PRN 05/16/23 05/16/23 History Allergies Allergy/AdvReac Type Severity Reaction Status Date / Time Sulfa (Sulfonamide Allergy Rash/Hives Verified 05/22/23 09:00 Antibiotics) Surgical - Exam Vital Signs Temp Pulse Resp BP Pulse Ox 97.2 F L 82 20 127/72 99 05/22/23 09:05 05/22/23 09:05 05/22/23 09:05 05/22/23 09:05 05/22/23 09:05 - General well developed, well nourished, no distress - Eyes PERRL - ENT normal pinna - Neck no masses - Respiratory normal expansion - Cardiovascular Rhythm: regular - Abdomen Abdomen: soft, non tender Assessment and Plan Assessment: Morbid obesity. We'll perform laparoscopic sleeve gastric. Patient reversed surgery including gastric sleeve injury, bleeding, scarring, perforation
[2023-05-22] MEDS ORDERED: SCOPOLAMINE 1 MG/72 HR PATCH TRANSDERM ONE (09:22)
[2023-05-22] MEDS ORDERED: PROPOFOL 10 MG/ML 20 ML VIAL IV ONE (09:35)
[2023-05-22] MEDS ORDERED: ROCURONIUM 10 MG/ML (5 ML VIAL) IV ONE (09:35)
[2023-05-22] MEDS ORDERED: LIDOCAINE 1% INJ 10MG/ML (20 ML MDV) ONE (09:35)
[2023-05-22] MEDS ORDERED: MIDAZOLAM 2 MG/2 ML VIAL ONE (09:35)
[2023-05-22] MEDS ORDERED: HYDROmorphone (PF) 1 MG/ML ONE (09:35)
[2023-05-22] MEDS ORDERED: GLYCOPYRROLATE 0.2 MG/ML 2 ML VIAL ONE (09:35)
[2023-05-22] MEDS ORDERED: SUCCINYLCHOLINE CHLORIDE 200 MG/10 ML VIAL IV ONE (09:35)
[2023-05-22] MEDS ORDERED: PHENYLEPHRINE-0.9% NACL SYG 1,000 MCG/10 ML SYRINGE ONE (09:35)
[2023-05-22] MEDS ORDERED: fentaNYL (PF) 50 MCG/ML 2 ML AMP ONE (09:35)
[2023-05-22] MEDS ORDERED: NEOSTIGMINE 1 MG/ML 10 ML VIAL ONE (09:35)
[2023-05-22] MEDS ORDERED: LIDOCAINE 1%-EPI 1:100,000 50 ML VIAL SQ ONE (10:33)
[2023-05-22] MEDS ORDERED: HYDROmorphone 0.5 MG/0.5 ML SYRINGE IVP PRN (11:44)
[2023-05-22] MEDS ORDERED: NALOXONE 0.4 MG/ML 1 ML VIAL IV PRN (11:44)
[2023-05-22] MEDS ORDERED: HYDROmorphone 1 MG/ML 1 ML SYRINGE IVP PRN (11:44)
[2023-05-22] MEDS: HYDROmorphone 0.5 MG/0.5 ML SYRINGE IVP PRN ×2 (11:52→12:51)
[2023-05-22] MEDS: LACTATED RINGERS 1,000 ML IV SCH (12:30)
--- NOTE | 2023-05-22 12:50 | P.OP ---
Date of Procedure: 05/22/23 Preoperative Diagnosis: morbid obesity Postoperative Diagnosis: morbid obesity Procedure(s) Performed: laparoscopic sleeve gastrectomy Laparoscopic repair of paraesophageal hiatal hernia Anesthesia: [facility] Surgeon: Kaushal Mead Pathology: other (stomach) Condition: stable Disposition: PACU Operative Findings: paraesophageal hiatal hernia Description of Procedure: Kiki patient was placed on the operating room table in the supine position. She received general anesthesia and then was placed in dorsal lithotomy position. Her abdomen was prepped and draped in sterile fashion. The skin incision sites were anesthetized 1% local Xylocaine. And then the skin was incised with an 11 blade in the left lateral position. Using a blade less trocar under direct visualization the peritoneal cavity was entered. The abdomen was insufflated and then a 5 mm laparoscope was placed into the peritoneal cavity. A 5 mm trocar was placed in the right epigastric, and right lateral position. A 15 mm trocar was placed in the supra-umbilical position and another 5 mm trocar was placed in the left lateral position. The left lateral lobe of the liver was retracted. thereafter the patient is known to have a large paraesophageal hiatal hernia. At this point the crura was dissected. The stomach was visualized. The greater curvature of the stomach was then dissected using the Harmonic scissors. The dissection occurred approximately 5 cm from the pylorus to the level of the left jaspal. There was no hiatal hernia seen. At this point a 40-Norwegian bougie dilator was placed the oropharynx and passed into the esophagus and into the stomach by the FINANCIAL AUDITOR. The sleeve gastrectomy was performed by using the powered echelon stapler with a seam guard buttress material. Sequential firings of the stapler were performed. The gastric remnant was then brought out through the 15 mm trocar site. The dilator was withdrawn. And a orogastric tube was replaced into the stomach. The stomach was insufflated with 200 mL of methylene blue normal saline. There was no evidence of extravasation. The abdomen was irrigated there is no bleeding seen. The Trent-Edith device was used to close the 15 mm trocar with 0 Vicryl. Skin was closed with interrupted 3-0 Monocryl sutures once the trochars withdrawn. Dermabond dressing was applied. Patient was sent to recovery in stable condition.
[2023-05-22] MEDS: KETOROLAC 15 MG/ML 1 ML VIAL IVP SCH (18:49)
[2023-05-22] MEDS: 0.9% NACL WITH KCL 20 MEQ/L 1,000 ML IV SCH (18:51)
[2023-05-22] MEDS: ENOXAPARIN 40 MG/0.4 ML SYRINGE SQ SCH (20:16)
[2023-05-22] MEDS: ALBUTEROL NEBULIZED 2.5 MG/3 ML INHALATION SCH ×2 (20:45)
[2023-05-23] MEDS: 0.9% NACL WITH KCL 20 MEQ/L 1,000 ML IV SCH ×2 (00:16→05:51)
[2023-05-23] MEDS: KETOROLAC 15 MG/ML 1 ML VIAL IVP SCH ×3 (00:16→11:58)
[2023-05-23] MEDS: LACTATED RINGERS 1,000 ML IV SCH (03:06)
[2023-05-23] MEDS: ENOXAPARIN 40 MG/0.4 ML SYRINGE SQ SCH (07:45)
[2023-05-23 07:51] VITALS: BP 143/79; RESP 18; TEMP 98.7
[2023-05-23] MEDS: ALBUTEROL NEBULIZED 2.5 MG/3 ML INHALATION SCH ×2 (08:05→11:33)
[2023-05-23] MEDS ORDERED: PANTOPRAZOLE 40 MG/10 ML VIAL IV SCH (09:00)
--- NOTE | 2023-05-23 09:42 | P.CONS ---
History of Present Illness - Reason for Consult Consult date: 05/22/23 - History of Present Illness Rica Tinajero, is a 62-year-old female patient who presented for an elective laparoscopic gastric sleeve. Patient has past medical history of asthma, GERD, hypertension, thyroid disorder, ex-smoker and morbid obesity. This time patient is resting comfortably in bed postoperatively. Patient started on bariatric clear diet. Patient denies chest pain or shortness of breath. Patient denies nausea vomiting or diarrhea. Patient denies any urinary burning or frequency. Lab work ordered. 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 ORIF LT WRIST Past Anesthesia/Blood Transfusion Reactions: No Reported Reaction Smoking Status: Former smoker - Past Family History Mother Family Medical History: Cancer Sister(s) Family Medical History: Cancer Medications and Allergies Home Medications Medication Instructions Recorded Confirmed Type Cetirizine HCl 10 mg PO DAILY 07/22/22 05/16/23 History Levothyroxine Sodium [Synthroid] 75 mcg PO DAILY 07/22/22 05/16/23 History Omeprazole 20 mg PO DAILY 07/22/22 05/16/23 History amLODIPine [Norvasc] 5 mg PO DAILY 07/22/22 05/16/23 History lisinopriL [Zestril] 10 mg PO DAILY 07/22/22 05/16/23 History Albuterol Inhaler [Ventolin Hfa 1 - 2 puff INHALATION Q6H PRN 05/16/23 05/16/23 History Inhaler] Budesonide/Formoterol Fumarate 1 puff INHALATION DAILY 05/16/23 05/16/23 History [Symbicort 160-4.5 Mcg Inhaler] Meclizine [Antivert] 25 mg PO DAILY PRN 05/16/23 05/16/23 History Allergies Allergy/AdvReac Type Severity Reaction Status Date / Time Sulfa (Sulfonamide Allergy Rash/Hives Verified 05/22/23 09:00 Antibiotics) Physical Exam Vitals: Vital Signs Temp Pulse Resp BP Pulse Ox 05/22/23 15:32 104 H 16 145/84 96 05/22/23 15:02 94 12 143/83 99 05/22/23 14:32 90 12 137/76 100 05/22/23 14:02 86 10 L 134/80 99 05/22/23 13:32 70 12 133/74 99 05/22/23 13:17 78 12 122/76 98 05/22/23 13:02 74 12 117/73 100 05/22/23 12:47 69 12 135/72 100 05/22/23 12:32 72 16 126/79 100 05/22/23 12:17 67 16 133/73 99 05/22/23 12:02 63 18 126/65 99 05/22/23 11:47 69 16 133/71 100 05/22/23 11:32 70 20 125/64 99 05/22/23 11:17 97.8 F 84 14 123/74 99 05/22/23 09:05 97.2 F L 82 20 127/72 99 Intake and Output 05/22/23 05/22/23 05/22/23 06:59 14:59 22:59 Intake Total 1050 Output Total 15 Balance 1035 Intake: IV 1050 Output: Estimated Blood Loss 15 Other: Weight 88.2 kg Head normocephalic Neck supple Lungs clear to auscultation bilaterally no wheezing or crackles Heart regular rate and rhythm S1-S2, no rub or gallop Abdomen is soft nontender nondistended positive bowel sounds no hepatosplenomega ly. Abdominal incisions clean dry and intact Extremities no edema Neuro alert and orientated to 3 Assessment and Plan Assessment: 1. Status post laparoscopic gastric sleeve with Dr. Mead on 05/22/2023. Patient currently postop day 1 2. History of asthma no exacerbation at this time 3. History of GERD 4. History of essential hypertension 5. History of hypothyroidism 6. History of depression 7. Ex-smoker Thank you for this consultation we will continue to follow patient closely throughout stay CBC and CMP ordered DVT prophylaxis Lovenox per surgical services and GI prophylaxis Protonix Time with Patient: Greater than 30 (Greater than 60% of the total time spent in counseling and coordination of care)
--- NOTE | 2023-05-23 09:43 | P.PN ---
Subjective Progress Note Date: 05/23/23 Rica Tinajero, is a 62-year-old female patient who presented for an elective laparoscopic gastric sleeve. Patient has past medical history of asthma, GERD, hypertension, thyroid disorder, ex-smoker and morbid obesity. This time patient is resting comfortably in bed postoperatively. Patient started on bariatric clear diet. Patient denies chest pain or shortness of breath. Patient denies nausea vomiting or diarrhea. Patient denies any urinary burning or frequency. Lab work ordered. Current vital signs temp 98.0, heart rate 14, respiratory rate 18, blood pressure 120/79 with a pulse ox 95% on room air On 05/23/2023 patient's alert and oriented 3. Patient has been tolerating diet. Patient denies nausea vomiting or diarrhea. Patient denies any urinary burning or frequency. Current vital signs temp 98.014, respiratory rate 18, blood pressure 124/79 with pulse ox 95% on room air. Anticipate possible discharge home today per surgical services. Objective - Vital Signs Vital signs: Vital Signs Temp 98.7 F 05/23/23 07:17 Pulse 82 05/23/23 09:30 Resp 18 05/23/23 07:17 BP 143/79 05/23/23 07:17 Pulse Ox 96 05/23/23 07:17 FiO2 Intake & Output 05/22/23 05/23/23 05/23/23 18:59 06:59 18:59 Intake Total 1950 Output Total 15 Balance 1934 Weight 88.2 kg Intake: IV 1950 Output: Estimated Blood Loss 15 Other: Voiding Method Toilet # Voids 1 - Exam Head normocephalic Neck supple Lungs clear to auscultation bilaterally no wheezing or crackles Heart regular rate and rhythm S1-S2, no rub or gallop Abdomen is soft nontender nondistended positive bowel sounds no hepatosplenomegaly. Abdominal incisions clean dry and intact Extremities no edema Neuro alert and orientated to 3 Assessment and Plan Assessment: 1. Status post laparoscopic gastric sleeve with Dr. Mead on 05/22/2023. Patient currently postop day 1 2. History of asthma no exacerbation at this time 3. History of GERD 4. History of essential hypertension 5. History of hypothyroidism 6. History of depression 7. Ex-smoker Thank you for this consultation we will continue to follow patient closely throughout stay CBC and CMP ordered DVT prophylaxis Lovenox per surgical services and GI prophylaxis Protonix
[2023-05-23 10:51] LABS: Basophils # (A) 0.02 X 10*3/uL (0.00-0.10); Basophils % (A) 0.2 %; Eosinophils # (A) 0 X 10*3/uL (0.04-0.35); Eosinophils % (A) 0 %; HCT 38.2 % (37.2-50.0); HGB 12.6 g/dL (12.0-17.0); Lymphocytes # (A) 1.36 X 10*3/uL (0.90-5.00); Lymphocytes % (A) 15.6 %; MCH 29.2 pg (27.0-32.0); MCV 88.6 FL (80.0-97.0); Monocytes # (A) 0.62 X 10*3/uL (0.20-1.00); Monocytes % (A) 7.1 %; NRBC Per 100 WBC 0 X 10*3/uL (0.00-0.01); Neutrophils % (A) 76.8 %; Platelet Count 277 X 10*3/uL (140-440); RBC 4.31 X 10*6/uL (4.10-5.60); RDW 12.9 % (11.5-14.5); WBC 8.73 X 10*3/uL (4.50-10.00)
[2023-05-23 11:17] LABS: Blood Urea Nitrogen 14.6 mg/dL (9.0-27.0); Calcium 9.2 mg/dL (8.7-10.3); Carbon Dioxide 23.4 mmol/L (21.6-31.8); Chloride 109 mmol/L (96-109); Magnesium 2.1 mg/dL (1.5-2.4); Phosphorus 3.2 mg/dL (2.4-5.1); Potassium 4.4 mmol/L (3.5-5.5); Sodium 143 mmol/L (135-145)
[2023-05-23 11:51] VITALS: PULSE 72
--- NOTE | 2023-05-23 13:17 | P.DS ---
Providers Date of admission: 05/22/23 08:19 Expected date of discharge: 05/23/23 Attending physician: Kaushal Mead Consults: 05/22/23 11:44 Consult Physician Routine Consulting Provider: Farrah Desouza Consult Reason/Comments: med manage Do you want consulting provider notified?: Yes Primary care physician: Farrah Desouza [facility] Course: Discharge diagnosis 1. Morbid obesity status post laparoscopic sleeve gastrectomy and repair of paraesophageal hiatal hernia Hospital course This is a 62-year-old female with known history of morbid obesity. She is status post laparoscopic sleeve gastrectomy and repair of paraesophageal hiatal hernia. Patient's pain is controlled. She is tolerating diet. She has been up and ambulating. She is afebrile. She is stable for discharge. Please refer to chart for any further details. Physician Electroless Plater note has been reviewed by physician. Signing provider agrees with the documented findings, assessment, and plan of care. Patient Condition at Discharge: Stable Plan - Discharge Summary Discharge Rx Participant: Yes New Discharge Prescriptions: New Simethicone 40 mg/0.6 ml Drops [Mylicon Drops] 40 mg PO PCHS PRN #30 ml PRN Reason: Gas Omeprazole [PriLOSEC] 40 mg PO DAILY #30 cap Ondansetron Odt [Zofran Odt] 4 mg PO Q8HR PRN #9 tab PRN Reason: Nausea bisacodyL [Dulcolax] 5 mg PO DAILY PRN #10 tab PRN Reason: Constipation HYDROcodone/APAP 5-325MG [Robards 5-325] 1 tab PO Q6HR PRN 2 Days #5 tab PRN Reason: Pain Continue amLODIPine [Norvasc] 5 mg PO DAILY Meclizine [Antivert] 25 mg PO DAILY PRN PRN Reason: Vertigo Budesonide/Formoterol Fumarate [Symbicort 160-4.5 Mcg Inhaler] 1 puff INHALATION DAILY lisinopriL [Zestril] 10 mg PO DAILY Levothyroxine Sodium [Synthroid] 75 mcg PO DAILY Cetirizine HCl 10 mg PO DAILY Albuterol Inhaler [Ventolin Hfa Inhaler] 1 - 2 puff INHALATION Q6H PRN PRN Reason: Wheezing Discontinued Omeprazole 20 mg PO DAILY Discharge Medication List Cetirizine HCl 10 mg PO DAILY 07/22/22 [History] Levothyroxine Sodium [Synthroid] 75 mcg PO DAILY 07/22/22 [History] amLODIPine [Norvasc] 5 mg PO DAILY 07/22/22 [History] lisinopriL [Zestril] 10 mg PO DAILY 07/22/22 [History] Albuterol Inhaler [Ventolin Hfa Inhaler] 1 - 2 puff INHALATION Q6H PRN 05/16/23 [History] Budesonide/Formoterol Fumarate [Symbicort 160-4.5 Mcg Inhaler] 1 puff INHALATION DAILY 05/16/23 [History] Meclizine [Antivert] 25 mg PO DAILY PRN 05/16/23 [History] HYDROcodone/APAP 5-325MG [Robards 5-325] 1 tab PO Q6HR PRN 2 Days #5 tab 05/23/23 [Rx] Omeprazole [PriLOSEC] 40 mg PO DAILY #30 cap 05/23/23 [Rx] Ondansetron Odt [Zofran Odt] 4 mg PO Q8HR PRN #9 tab 05/23/23 [Rx] Simethicone 40 mg/0.6 ml Drops [Mylicon Drops] 40 mg PO PCHS PRN #30 ml 05/23/23 [Rx] bisacodyL [Dulcolax] 5 mg PO DAILY PRN #10 tab 05/23/23 [Rx] Follow up [facility]ment(s[facility] [place] [facility] 1 Week Patient Instructions/Handouts: *Surgery [facility] - Scopalamine Patch Instructions Activity/Diet/Wound Care/Special Instructions: No driving while taking Robards No lifting over 10 pounds Shower daily. No soaking or tub baths for 2 weeks Very light activity until you are reevaluated at your follow up appointment with your surgeon No straws or carbonated beverages Discharge Disposition: HOME SELF-CARE
== END 2023-05-23 15:15 | disposition home or self-care (01) | DRG 621 ==
LOC: 2ORMAIN 08:19 → 4SSUR 17:00
PROVIDERS: ADMIT Surgery; ATTEND Surgery
PROC: 0BQT4ZZ Repair Diaphragm, Percutaneous Endoscopic Approach (ICD-10-PCS; principal; 2023-05-22 09:40)
PROC: 0DB64Z3 Excision of Stomach, Percutaneous Endoscopic Approach, Vertical (ICD-10-PCS; principal; 2023-05-22 09:40)
DX: E66.01 Morbid (severe) obesity due to excess calories (principal); E03.9 Hypothyroidism, unspecified; Z68.35 Body mass index [BMI] 35.0-35.9, adult; Z28.310 Unvaccinated for COVID-19; K44.9 Diaphragmatic hernia without obstruction or gangrene; I10 Essential (primary) hypertension; J45.909 Unspecified asthma, uncomplicated; K21.9 Gastro-esophageal reflux disease without esophagitis; Z79.51 Long term (current) use of inhaled steroids; Z79.890 Hormone replacement therapy; Z79.899 Other long term (current) drug therapy; Z87.891 Personal history of nicotine dependence
CPT/HCPCS: 80051; 82310; 82565; 83735; 84100; 84520; 85025; 88307; 94640

== ENCOUNTER 2023-05-24 05:31 | Observation (INO) | payer MEDICARE, OTHER ==
[2023-05-24] MEDS ORDERED: ONDANSETRON 4 MG/2 ML VIAL IVP STA ×2 (05:52→08:45)
[2023-05-24 06:07] LABS: ALT 64 U/L (4-34); AST 44 U/L (14-36); African American GFR (CKD) >90 (>60 ml/min/1.73 sqM); Albumin 4.6 g/dL (3.5-5.0); Alkaline Phosphatase 112 U/L (38-126); Anion Gap 10 mmol/L; Blood Urea Nitrogen 12 mg/dL (7-17); Calcium 9.3 mg/dL (8.4-10.2); Carbon Dioxide 22 mmol/L (22-30); Chloride 108 mmol/L (98-107); Glucose 132 mg/dL (74-99); Non-African American GFR(CKD) >90 (>60 ml/min/1.73 sqM); Potassium 3.8 mmol/L (3.5-5.1); Sodium 140 mmol/L (137-145); Total Bilirubin 1.4 mg/dL (0.2-1.3); Total Protein 7.5 g/dL (6.3-8.2)
[2023-05-24] MEDS ORDERED: SODIUM CHLORIDE 0.9% 500 ML 500 ML IV ONE ×2 (06:10→08:20)
[2023-05-24] MEDS ORDERED: SODIUM CHLORIDE 0.9% 1,000 ML IV ONE (06:10)
[2023-05-24] MEDS ORDERED: IOPAMIDOL CONTRAST (ORAL USE) VIAL PO PRN (06:11)
[2023-05-24 06:18] LABS: Basophils % (A) 0 %; Eosinophils % (A) 0 %; HCT 41.7 % (34.0-46.0); HGB 14.3 gm/dL (11.4-16.0); Lymphocytes # (A) 0.7 k/uL (1.0-4.8); Lymphocytes % (A) 7 %; MCH 29.9 pg (25.0-35.0); MCHC 34.3 g/dL (31.0-37.0); MCV 87.2 fL (80.0-100.0); Mean Platelet Volume 7.8; Monocytes # (A) 0.4 k/uL (0-1.0); Monocytes % (A) 3 %; Neutrophils # (A) 9.8 k/uL (1.3-7.7); Neutrophils % (A) 89 %; Platelet Count 273 k/uL (150-450); RBC 4.78 m/uL (3.80-5.40); RDW 12.7 % (11.5-15.5)
[2023-05-24] MEDS ORDERED: METOCLOPRAMIDE 5 MG/ML 2 ML VIAL IVP STA (06:30)
--- NOTE | 2023-05-24 07:04 | ED ---
General Adult HPI - General Chief complaint: Nausea/Vomiting/Diarrhea Stated complaint: Dry heaves- post op Time Seen by Provider: 05/24/23 06:10 Source: patient, family, RN notes reviewed Mode of arrival: wheelchair Limitations: no limitations - History of Present Illness Initial comments: 62-year-old female presents to emergency Department chief complaint nausea vomiting abdominal pain. Patient states she is status post gastric sleeve on Monday. She was discharged yesterday states she woke up denies any vomiting states she's not been able to stop. She's having increasing abdominal pain and pressure. Patient denies any chest pain or shortness breath no fevers or chills no plan of incision sites. - Related Data Home Medications Medication Instructions Recorded Confirmed Cetirizine HCl 10 mg PO DAILY 07/22/22 05/24/23 amLODIPine [Norvasc] 5 mg PO DAILY 07/22/22 05/24/23 lisinopriL [Zestril] 10 mg PO DAILY 07/22/22 05/24/23 Albuterol Inhaler [Ventolin Hfa 1 - 2 puff INHALATION RT-Q6H PRN 05/16/23 05/24/23 Inhaler] Budesonide/Formoterol Fumarate 1 - 2 puff INHALATION RT-DAILY PRN 05/16/23 05/24/23 [Symbicort 160-4.5 Mcg Inhaler] Meclizine [Antivert] 25 mg PO DAILY PRN 05/16/23 05/24/23 Levothyroxine Sodium [Synthroid] 75 mcg PO DAILY 05/24/23 05/24/23 Previous Rx's Medication Instructions Recorded HYDROcodone/APAP 5-325MG [[place] 1 tab PO Q6HR PRN 2 Days #5 tab 05/23/23 5-325] Omeprazole [PriLOSEC] 40 mg PO DAILY #30 cap 05/23/23 Ondansetron Odt [Zofran Odt] 4 mg PO Q8HR PRN #9 tab 05/23/23 Simethicone 40 mg/0.6 ml Drops 40 mg PO PCHS PRN #30 ml 05/23/23 [Mylicon Drops] bisacodyL [Dulcolax] 5 mg PO DAILY PRN #10 tab 05/23/23 Allergies Allergy/AdvReac Type Severity Reaction Status Date / Time Sulfa (Sulfonamide Allergy Rash/Hives Verified 05/24/23 12:15 Antibiotics) Review of Systems ROS Statement: Those systems with pertinent positive or pertinent negative responses have been documented in the HPI. ROS Other: All systems not noted in ROS Statement are negative. 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 ORIF LT WRIST. Sleeve gastrectomy 05-22-23 Past Anesthesia/Blood Transfusion Reactions: No Reported Reaction Past Psychological History: Depression Smoking Status: Former smoker Past Alcohol Use History: Rare Past Drug Use History: None Reported - Past Family History Mother Family Medical History: Cancer Sister(s) Family Medical History: Cancer General Exam Limitations: no limitations General appearance: alert, in no apparent distress Head exam: Present: atraumatic, normocephalic, normal inspection Neck exam: Present: normal inspection. Absent: tenderness, meningismus, lymphadenopathy Respiratory exam: Present: normal lung sounds bilaterally. Absent: respiratory distress, wheezes, rales, rhonchi, stridor Cardiovascular Exam: Present: regular rate, normal rhythm, normal heart sounds. Absent: systolic murmur, diastolic murmur, rubs, gallop, clicks GI/Abdominal exam: Present: soft, tenderness, normal bowel sounds. Absent: distended, guarding, rebound, rigid Neurological exam: Present: alert Skin exam: Present: warm, dry, intact, normal color. Absent: rash Course Vital Signs 05/24/23 05/24/23 05/24/23 05:33 07:51 15:35 Temperature 97.9 F 97.9 F Pulse Rate 85 82 76 Respiratory 20 16 16 Rate Blood Pressure 154/89 143/81 154/87 O2 Sat by Pulse 98 95 92 L Oximetry 05/24/23 05/24/23 18:07 19:33 Temperature 98.2 F Pulse Rate 72 93 Respiratory 16 18 Rate Blood Pressure 152/72 164/88 O2 Sat by Pulse 95 93 L Oximetry Medical Decision Making - Medical Decision Making Was pt. sent in by a medical professional or institution ([facility], FLOORWALKER, urgent care, hospital, or [facility]...) When possible be specific @ -No Did you speak to anyone other than the patient for history (EMS, parent, family, police, friend...)? What history was obtained from this source @ -No Did you review nursing and triage notes (agree or disagree)? Why? @ -I reviewed and agree with nursing and triage notes Were old charts reviewed (outside hosp., previous admission, EMS record, old EKG, old radiological studies, urgent care reports/EKG's, [facility] records)? Report findings @ -Reviewed recent admission, surgical records Differential Diagnosis (chest pain, altered mental status, abdominal pain women, abdominal pain men, vaginal bleeding, weakness, fever, dyspnea, syncope, headache, dizziness, GI bleed, back pain, seizure, CVA, palpatations, mental health, musculoskeletal)? @ -Differential Abdominal Pain Women: Appendicitis, Cholecystitis, diverticulosis, ischemic bowel, pancreatitis, hepatitis, UTI, gastroenteritis, AAA, incarcerated hernia, bowel obstruction, constipation, inflammatory bowel, hepatitis, peptic ulcer disease, splenic i nfarction, perforated viscus, vulvitis, ovarian torsion, PID, kidney stone, placenta abruption, this is not meant to be an all-inclusive list EKG interpreted by me (3pts min.). @ -None X-rays interpreted by me (1pt min.). @ -None done CT interpreted by me (1pt min.). @ -[CT abdomen and pelvis with IV and oral contrast showing evidence of postsurgical changes small foci of air related to recent surgery, recent small splenic infarct U/S interpreted by me (1pt. min.). @ -None done What testing was considered but not performed or refused? (CT, X-rays, U/S, labs)? Why? @ -None What meds were considered but not given or refused? Why? @ -None Did you discuss the management of the patient with other professionals (professionals i.e. [facility], FLOORWALKER, lab, RT, psych nurse, social media intern, millinery department manager, teacher, commercial escrow officer, case resolution specialist)? Give summary @ -[I did discuss case with Dr. Mead who came and evaluated the patient recommended patient to be admitted for observation for IV hydration for nausea and continued antiemetics Was smoking cessation discussed for >3mins.? @ -No Was critical care preformed (if so, how long)? @ -No Were there social determinants of health that impacted care today? How? (Homelessness, low income, unemployed, alcoholism, drug addiction, transportation, low edu. Level, literacy, decrease access to med. care, [facility], rehab)? @ -No Was there de-escalation of care discussed even if they declined (Discuss DNR or withdrawal of care, Hospice)? DNR status @ -No What co-morbidities impacted this encounter? (DM, HTN, Smoking, COPD, CAD, Cancer, CVA, ARF, Chemo, Hep., AIDS, mental health diagnosis, sleep apnea, morbid obesity)? @ -None Was patient admitted / discharged? Hospital course, mention meds given and route, prescriptions, significant lab abnormalities, going to OR and other pertinent info. @ -Admitted for IV hydration, antiemetics as patient is having persistent na usea, dry heaving. Patient was evaluated by a surgeon in the emergency department. Undiagnosed new problem with uncertain prognosis? @ -No Drug Therapy requiring intensive monitoring for toxicity (Heparin, Nitro, Insulin, Cardizem)? @ -No Were any procedures done? @ -No Diagnosis/symptom? @ -Nausea, postsurgical Acute, or Chronic, or Acute on Chronic? @ -[Acute Uncomplicated (without systemic symptoms) or Complicated (systemic symptoms)? @ -[Uncomplicated Side effects of treatment? @ -No Exacerbation, Progression, or Severe Exacerbation? @ -No Poses a threat to life or bodily function? How? (Chest pain, [place], NH, pneumonia, PE, COPD, DKA, ARF, appy, cholecystitis, CVA, Diverticulitis, Homicidal, Suicidal, threat to staff... and all critical care pts) @ -No - Lab Data Result diagrams: 05/24/23 05:44 05/24/23 05:44 Lab Results 05/24/23 05/24/23 05/24/23 Range/Units 05:44 05:44 05:44 WBC 11.0 H (3.8-10.6) k/uL RBC 4.78 (3.80-5.40) m/uL Hgb 14.3 (11.4-16.0) gm/dL Hct 41.7 (34.0-46.0) % MCV 87.2 (80.0-100.0) fL MCH 29.9 (25.0-35.0) pg MCHC 34.3 (31.0-37.0) g/dL RDW 12.7 (11.5-15.5) % Plt Count 273 (150-450) k/uL MPV 7.8 Neutrophils % 89 % Lymphocytes % 7 % Monocytes % 3 % Eosinophils % 0 % Basophils % 0 % Neutrophils # 9.8 H (1.3-7.7) k/uL Lymphocytes # 0.7 L (1.0-4.8) k/uL Monocytes # 0.4 (0-1.0) k/uL Eosinophils # 0.0 (0-0.7) k/uL Basophils # 0.0 (0-0.2) k/uL Sodium 140 (137-145) mmol/L Potassium 3.8 (3.5-5.1) mmol/L Chloride 108 H (98-107) mmol/L Carbon Dioxide 22 (22-30) mmol/L Anion Gap 10 mmol/L BUN 12 (7-17) mg/dL Creatinine 0.62 (0.52-1.04) mg/dL Est GFR (CKD-EPI)AfAm >90 (>60 ml/min/1.73 sqM) Est GFR (CKD-EPI)NonAf >90 (>60 ml/min/1.73 sqM) Glucose 132 H (74-99) mg/dL Calcium 9.3 (8.4-10.2) mg/dL Total Bilirubin 1.4 H (0.2-1.3) mg/dL AST 44 H (14-36) U/L ALT 64 H (4-34) U/L Alkaline Phosphatase 112 (38-126) U/L Total Protein 7.5 (6.3-8.2) g/dL Albumin 4.6 (3.5-5.0) g/dL Urine Color Colorless Urine Appearance Clear (Clear) Urine pH 6.5 (5.0-8.0) Ur Specific [place] 1.032 (1.001-1.035) Urine Protein Negative (Negative) Urine Glucose (UA) Negative (Negative) Urine Ketones 2+ H (Negative) Urine Blood Negative (Negative) Urine Nitrite Negative (Negative) Urine Bilirubin Negative (Negative) Urine Urobilinogen <2.0 (<2.0) mg/dL Ur Leukocyte Esterase Negative (Negative) Disposition Clinical Impression: Nausea, S/P gastric sleeve procedure Disposition: ADMITTED IP TO THIS HOSP Condition: Fair Time of Disposition: 13:13
--- NOTE | 2023-05-24 07:47 | CT ---
EXAMINATION TYPE: CT abdomen pelvis w con DATE OF EXAM: 05/24/2023 COMPARISON: NONE HISTORY: 62-year-old female Nausea, Vomiting and pain s/p gastric sleeve 05/22/2023 TECHNIQUE: Contiguous axial scanning of the abdomen and pelvis following administration of 100 ml Iso ekaterina 300 IV contrast. Delayed images through the kidneys and coronal/sagittal reconstructions perform ed. CT DLP: 1587.3 mGycm Automated exposure control for dose reduction was used. FINDINGS: The heart is normal size with trace pericardial fluid. There are trace bilateral pleural ef fusions also present with adjacent hazy atelectasis. There may be a tiny hiatal hernia and postsurgical change of sleeve gastrectomy. Small foci of extraluminal air are present adjacent to the distal esophagus within the lower chest ju st above and at the GE junction level. There is some mild fat stranding in this level as well. No ext ravasated contrast material identified. No focal liver lesion or biliary ductal dilatation. Portal venous system is patent. Gallbladder, adrenal glands, kidneys, and pancreas within normal limits. There is a wedge-shaped area of hypoenhancement along the medial aspect of the spleen. No dilated small bowel, free fluid. Trace perihepatic free air noted, axial image 15. No mesenteric or retroperitoneal lymphadenopathy. Mild stool burden. Mildly redundant sigmoid colon. No pericolonic inflammatory change. Bladder is urine distended. Multiple pelvic phleboliths. Uterus anteverted. There is a dominant calcified right anterior uterine body fibroid measuring 2.1 cm . Both ovaries are visualized. Trace pelvic free fluid probably related to recent operation. No pelvi c adenopathy. Small foci of air within the anterior abdominal subcutaneous fat probably relates to recent surgery. Bones: Slight dextro convex curvature centered at the mid lumbar spine. Moderate degenerative disc di sease towards the left ureter at L2-L3. IMPRESSION: 1. RECENT POSTOPERATIVE CHANGES WITH SMALL FOCI OF AIR IN THE ANTERIOR SUBCUTANEOUS SOFT TISSUES, TRA CE FREE INTRAPERITONEAL AIR BELOW THE RIGHT HEMIDIAPHRAGM, AND TRACE PELVIC FREE FLUID. 2. POSTSURGICAL CHANGES OF SLEEVE GASTRECTOMY. NO EXTRAVASATED CONTRAST TO CLEARLY INDICATE A LEAK. T HERE APPEARS TO BE A SMALL HIATAL HERNIA. THERE ARE ALSO SMALL FOCI OF EXTRALUMINAL AIR JUST ABOVE AN D AT THE GE JUNCTION WHICH MAY ALSO BE POSTSURGICAL. MILD POSTSURGICAL INFLAMMATION WITH FAT STRANDIN G IS ALSO PRESENT IN THIS AREA. FOLLOW-UP CLINICALLY INDICATED IF SYMPTOMS PERSIST. 3. A FOCAL INFARCT ALONG THE MEDIAL ASPECT OF THE SPLEEN. ETIOLOGY UNCLEAR. 4. TRACE BILATERAL PLEURAL EFFUSIONS.
[2023-05-24 08:40] LABS: Appearance,Urine Clear (Clear); Bilirubin,Urine Negative (Negative); Blood,Urine Negative (Negative); Color,Urine Colorless; Glucose,Urine (UA) Negative (Negative); Ketones,Urine 2+ (Negative); Leukocyte Esterase,Urine Negative (Negative); Nitrite,Urine Negative (Negative); PH, Urine 6.5 (5.0-8.0); Protein,Urine Negative (Negative); Specific Gravity,Urine 1.032 (1.001-1.035); Urobilinogen,Urine <2.0 mg/dL (<2.0)
[2023-05-24] MEDS ORDERED: PROCHLORPERAZINE INJ 10 MG/2 ML VIAL IVP STA (11:53)
[2023-05-24] MEDS: SODIUM CHLORIDE 0.9% 1,000 ML IV SCH ×2 (11:59→19:31)
[2023-05-24] MEDS ORDERED: NALOXONE 0.4 MG/ML 1 ML VIAL IV PRN (13:13)
[2023-05-24] MEDS ORDERED: SYMBICORT 160-4.5 MCG INHALER INHALATION PRN (14:20)
[2023-05-24] MEDS ORDERED: HYDROcodone/APAP 5-325MG 1 EACH TAB PO PRN (14:20)
[2023-05-24] MEDS ORDERED: MECLIZINE 25 MG TAB PO PRN (14:20)
[2023-05-24] MEDS ORDERED: SIMETHICONE 40 MG/0.6 ML DROPS 2,000 MG/30 ML BOTTLE PO PRN (14:20)
--- NOTE | 2023-05-24 14:24 | P.GSHP ---
History of Present Illness H&P Date: 05/24/23 CHIEF COMPLAINT: Intractable nausea and vomiting HISTORY OF PRESENT ILLNESS: This is a 62-year-old female who is postop day #3 status post laparoscopic sleeve gastrectomy and repair of paraesophageal hiatal hernia. Patient was discharged on Monday and at that time had been tolerating liquids. Patient reports since 2 AM this morning she has been having intractable nausea and vomiting. She denies any abdominal pain. She has received Zofran and Reglan and Compazine. She has received 3 L of IV fluids. Currently vomiting has subsided. Computed tomography scan abdomen and pelvis showed no evidence of leak. Vitals have been stable. Patient denies any fever chills or sweats. PAST MEDICAL HISTORY: Asthma, GERD/Reflux, Hypertension, Thyroid Disorder PAST SURGICAL HISTORY: Adenoidectomy, Appendectomy, Bariatric Surgery, Orthopedic Surgery, Tonsillectomy, sleeve gastrectomy MEDICATIONS: See below ALLERGIES: See below SOCIAL HISTORY: No illicit drug use. REVIEW OF SYSTEMS: CONSTITUTIONAL: Denies fever or chills. HEENT: Denies blurred vision, vision changes, or eye pain. Denies hemoptysis CARDIOVASCULAR: Denies chest pain or pressure. RESPIRATORY: No shortness of breath. GASTROINTESTINAL: See HPI for pertinent findings HEMATOLOGIC: Denies bleeding disorders. GENITOURINARY: Denies any blood in urine or increased urinary frequency. SKIN: Denies pruitis. Denies rash. PHYSICAL EXAM: VITAL SIGNS: Reviewed GENERAL: Well-developed in no acute distress. ABDOMEN: Soft. Nondistended. Nontender. Incision sites clean dry and intact NEUROLOGIC: Alert and oriented. Cranial nerves II through XII grossly intact. LABORATORY DATA: WBC 11.0 Hgb 14.3 platelets 273 Sodium 140 potassium is 3.8 creatinine 0.62 Total bilirubin 1.4 AST 44 ALT 64 alk phos 112 Urinalysis negative for infection IMAGING: Computed tomography scan abdomen and pelvis since postoperative changes with small foci of air in the anterior subcutaneous soft tissues trace free intraperitoneal air below the right hemidiaphragm. Postsurgical changes of sleep gastrectomy. No extravasated contrast to clearly indicate a leak. There appears to be a small hiatal hernia. There are also small foci of extraluminal air just above the GE junction which may also be postsurgical. Mild postsurgical inflammation with fat stranding also present. Focal infarct along the medial aspect of the spleen etiology unclear trace bilateral pleural effusions. Gallbladder within normal limits. ASSESSMENT: 1. Intractable nausea and vomiting 2. Dehydration 3. Status post laparoscopic sleeve gastrectomy and repair of paraesophageal hiatal hernia 4. Leukocytosis PLAN: -Continue IV fluid hydration -Continue antiemetics -Add scopolamine patch -Resume bariatric clear liquid diet -GI prophylaxis Protonix and DVT prophylaxis Physician Metal Framer note has been reviewed by physician. Signing provider agrees with the documented findings, assessment, and plan of care. 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 ORIF LT WRIST. Sleeve gastrectomy 05-22-23 Past Anesthesia/Blood Transfusion Reactions: No Reported Reaction Past Psychological History: Depression Smoking Status: Former smoker Past Alcohol Use History: Rare Past Drug Use History: None Reported - Past Family History Mother Family Medical History: Cancer Sister(s) Family Medical History: Cancer Medications and Allergies Home Medications Medication Instructions Recorded Confirmed Type Cetirizine HCl 10 mg PO DAILY 07/22/22 05/24/23 History amLODIPine [Norvasc] 5 mg PO DAILY 07/22/22 05/24/23 History lisinopriL [Zestril] 10 mg PO DAILY 07/22/22 05/24/23 History Albuterol Inhaler [Ventolin Hfa 1 - 2 puff INHALATION RT-Q6H PRN 05/16/23 05/24/23 History Inhaler] Budesonide/Formoterol Fumarate 1 - 2 puff INHALATION RT-DAILY PRN 05/16/23 05/24/23 History [Symbicort 160-4.5 Mcg Inhaler] Meclizine [Antivert] 25 mg PO DAILY PRN 05/16/23 05/24/23 History HYDROcodone/APAP 5-325MG [[place] 1 tab PO Q6HR PRN 2 Days #5 tab 05/23/23 05/24/23 Rx 5-325] Omeprazole [PriLOSEC] 40 mg PO DAILY #30 cap 05/23/23 05/24/23 Rx Ondansetron Odt [Zofran Odt] 4 mg PO Q8HR PRN #9 tab 05/23/23 05/24/23 Rx Simethicone 40 mg/0.6 ml Drops 40 mg PO PCHS PRN #30 ml 05/23/23 05/24/23 Rx [Mylicon Drops] bisacodyL [Dulcolax] 5 mg PO DAILY PRN #10 tab 05/23/23 05/24/23 Rx Levothyroxine Sodium [Synthroid] 75 mcg PO DAILY 05/24/23 05/24/23 History Allergies Allergy/AdvReac Type Severity Reaction Status Date / Time Sulfa (Sulfonamide Allergy Rash/Hives Verified 05/24/23 12:15 Antibiotics) Surgical - Exam Vital Signs Temp Pulse Resp BP Pulse Ox 97.9 F 85 20 154/89 98 05/24/23 05:33 05/24/23 05:33 05/24/23 05:33 05/24/23 05:33 05/24/23 05:33 Results - Labs 05/24/23 05:44 05/24/23 05:44 Abnormal Lab Results - Last 24 Hours (Table) 05/24/23 05/24/23 05/24/23 Range/Units 05:44 05:44 05:44 WBC 11.0 H (3.8-10.6) k/uL Neutrophils # 9.8 H (1.3-7.7) k/uL Lymphocytes # 0.7 L (1.0-4.8) k/uL Chloride 108 H (98-107) mmol/L Glucose 132 H (74-99) mg/dL Total Bilirubin 1.4 H (0.2-1.3) mg/dL AST 44 H (14-36) U/L ALT 64 H (4-34) U/L Urine Ketones 2+ H (Negative) Diabetes panel 05/24/23 Range/Units 05:44 Sodium 140 (137-145) mmol/L Potassium 3.8 (3.5-5.1) mmol/L Chloride 108 H (98-107) mmol/L Carbon Dioxide 22 (22-30) mmol/L BUN 12 (7-17) mg/dL Creatinine 0.62 (0.52-1.04) mg/dL Glucose 132 H (74-99) mg/dL Calcium 9.3 (8.4-10.2) mg/dL AST 44 H (14-36) U/L ALT 64 H (4-34) U/L Alkaline Phosphatase 112 (38-126) U/L Total Protein 7.5 (6.3-8.2) g/dL Albumin 4.6 (3.5-5.0) g/dL Calcium panel 05/24/23 Range/Units 05:44 Calcium 9.3 (8.4-10.2) mg/dL Albumin 4.6 (3.5-5.0) g/dL Pituitary panel 05/24/23 Range/Units 05:44 Sodium 140 (137-145) mmol/L Potassium 3.8 (3.5-5.1) mmol/L Chloride 108 H (98-107) mmol/L Carbon Dioxide 22 (22-30) mmol/L BUN 12 (7-17) mg/dL Creatinine 0.62 (0.52-1.04) mg/dL Glucose 132 H (74-99) mg/dL Calcium 9.3 (8.4-10.2) mg/dL Adrenal panel 05/24/23 Range/Units 05:44 Sodium 140 (137-145) mmol/L Potassium 3.8 (3.5-5.1) mmol/L Chloride 108 H (98-107) mmol/L Carbon Dioxide 22 (22-30) mmol/L BUN 12 (7-17) mg/dL Creatinine 0.62 (0.52-1.04) mg/dL Glucose 132 H (74-99) mg/dL Calcium 9.3 (8.4-10.2) mg/dL Total Bilirubin 1.4 H (0.2-1.3) mg/dL AST 44 H (14-36) U/L ALT 64 H (4-34) U/L Alkaline Phosphatase 112 (38-126) U/L Total Protein 7.5 (6.3-8.2) g/dL Albumin 4.6 (3.5-5.0) g/dL
[2023-05-24] MEDS: METOCLOPRAMIDE 5 MG/ML 2 ML VIAL IVP PRN ×2 (15:31→21:14)
[2023-05-24] MEDS: SCOPOLAMINE 1 MG/72 HR PATCH TRANSDERM SCH (15:31)
[2023-05-24] MEDS: PANTOPRAZOLE 40 MG/10 ML VIAL IVP SCH (15:35)
[2023-05-24] MEDS: HEPARIN SODIUM,PORCINE 5,000 UNIT/ML 1 ML VIAL SQ SCH (19:32)
[2023-05-24] MEDS: ONDANSETRON 4 MG/2 ML VIAL IVP PRN (19:37)
[2023-05-25] MEDS: ONDANSETRON 4 MG/2 ML VIAL IVP PRN ×2 (01:37→06:44)
[2023-05-25] MEDS: METOCLOPRAMIDE 5 MG/ML 2 ML VIAL IVP PRN (03:23)
[2023-05-25] MEDS: SODIUM CHLORIDE 0.9% 1,000 ML IV SCH ×3 (04:25→17:53)
[2023-05-25] MEDS: LEVOTHYROXINE 75 MCG TAB PO SCH (06:41)
[2023-05-25] MEDS: PANTOPRAZOLE 40 MG/10 ML VIAL IVP SCH (07:55)
[2023-05-25] MEDS: LORATADINE 10 MG TAB PO SCH (07:56)
[2023-05-25] MEDS: HEPARIN SODIUM,PORCINE 5,000 UNIT/ML 1 ML VIAL SQ SCH ×2 (07:56→20:32)
[2023-05-25] MEDS: amLODIPine 5 MG TAB PO SCH (08:01)
[2023-05-25] MEDS: lisinopriL 10 MG TAB PO SCH (08:01)
--- NOTE | 2023-05-25 10:12 | P.PN ---
Subjective Progress Note Date: 05/25/23 CHIEF COMPLAINT: Nausea and vomiting HISTORY OF PRESENT ILLNESS: Patient reports still feeling nauseous and having dry heaves. However, she is feeling better than yesterday. She is having flatus. No bowel movement. Urinating without difficulty. She does report the urine is slightly dark at times. Afebrile. Labs pending. No evidence of leak on CAT scan PHYSICAL EXAM: VITAL SIGNS: Reviewed. GENERAL: Well-developed in no acute distress. ABDOMEN: Soft. Nondistended. Minimal tenderness at incision sites. Incision site is clean dry and intact. NEUROLOGIC: Alert and oriented. Cranial nerves II through XII grossly intact. ASSESSMENT: 1. Intractable nausea and vomiting 2. Postoperative nausea 3. Dehydration 4. Status post laparoscopic sleeve gastrectomy and repair of paraesophageal h iatal hernia 5. Leukocytosis PLAN: -Continue antiemetics -Change Reglan to schedule -Dulcolax as needed for constipation -Continue bariatric clear -Continue IV fluids -Encourage patient to ambulate -GI prophylaxis Protonix and DVT prophylaxis subcu heparin Physician Supervisor [employer]umping [employer] note has been reviewed by physician. Signing provider agrees with the documented findings, assessment, and plan of care. Objective - Vital Signs Vital signs: Vital Signs Temp 98.1 F 05/25/23 07:03 Pulse 62 05/25/23 07:03 Resp 18 05/25/23 08:49 BP 167/82 05/25/23 07:03 Pulse Ox 96 05/25/23 07:03 FiO2 Intake & Output 05/24/23 05/25/23 05/25/23 18:59 06:59 18:59 Intake Total 450 Balance 450 Weight 87.997 kg Intake: Oral 450 Other: # Voids 2 - Labs CBC & Chem 7: 05/24/23 05:44 05/24/23 05:44
[2023-05-25 11:14] LABS: Basophils # (A) 0.02 X 10*3/uL (0.00-0.10); Basophils % (A) 0.2 %; Eosinophils # (A) 0.02 X 10*3/uL (0.04-0.35); Eosinophils % (A) 0.2 %; HCT 38.1 % (37.2-50.0); HGB 12.6 g/dL (12.0-17.0); Lymphocytes # (A) 1.11 X 10*3/uL (0.90-5.00); Lymphocytes % (A) 11.2 %; MCH 29.2 pg (27.0-32.0); MCHC 33.1 g/dL (32.0-37.0); MCV 88.2 FL (80.0-97.0); Mean Platelet Volume 10.4 FL (9.5-12.2); NRBC Per 100 WBC 0 X 10*3/uL (0.00-0.01); Neutrophils # (A) 8.24 X 10*3/uL (1.80-7.70); Platelet Count 277 X 10*3/uL (140-440); RBC 4.32 X 10*6/uL (4.10-5.60); RDW 12.9 % (11.5-14.5); WBC 9.93 X 10*3/uL (4.50-10.00)
[2023-05-25] MEDS: METOCLOPRAMIDE 5 MG/ML 2 ML VIAL IVP SCH ×3 (11:23→23:35)
[2023-05-25 11:30] LABS: ALT 63 U/L (8-49); AST 40 U/L (13-35); Albumin/Globulin Ratio 1.82 Ratio (1.60-3.17); Alkaline Phosphatase 104 U/L (41-126); BUN/Creat Ratio 25.17 Ratio (12.00-20.00); Blood Urea Nitrogen 15.1 mg/dL (9.0-27.0); Calcium 8.9 mg/dL (8.7-10.3); Carbon Dioxide 20.9 mmol/L (21.6-31.8); Chloride 104 mmol/L (96-109); Globulin 2.2 g/dL (1.6-3.3); Glucose 106 mg/dL (70-110); Potassium 3.6 mmol/L (3.5-5.5); Sodium 140 mmol/L (135-145); Total Bilirubin 1.2 mg/dL (0.3-1.2); Total Protein 6.2 g/dL (6.2-8.2)
[2023-05-25] MEDS: DEXAMETHASONE SOD PHOSPHATE 4 MG/ML 1 ML VIAL IVP SCH ×3 (12:31→23:35)
[2023-05-25] MEDS: bisacodyL 5 MG TABLET.DR PO PRN (12:34)
[2023-05-26] MEDS: ONDANSETRON 4 MG/2 ML VIAL IVP PRN ×2 (03:38→09:51)
[2023-05-26] MEDS: SODIUM CHLORIDE 0.9% 1,000 ML IV SCH ×3 (03:38→17:03)
[2023-05-26] MEDS: DEXAMETHASONE SOD PHOSPHATE 4 MG/ML 1 ML VIAL IVP SCH ×3 (05:35→20:56)
[2023-05-26] MEDS: LEVOTHYROXINE 75 MCG TAB PO SCH (05:35)
[2023-05-26] MEDS: METOCLOPRAMIDE 5 MG/ML 2 ML VIAL IVP SCH ×3 (05:35→20:57)
[2023-05-26] MEDS: LORATADINE 10 MG TAB PO SCH (09:45)
[2023-05-26] MEDS: amLODIPine 5 MG TAB PO SCH (09:45)
[2023-05-26] MEDS: HEPARIN SODIUM,PORCINE 5,000 UNIT/ML 1 ML VIAL SQ SCH ×2 (09:45→20:57)
[2023-05-26] MEDS: lisinopriL 10 MG TAB PO SCH (09:45)
[2023-05-26] MEDS: PANTOPRAZOLE 40 MG/10 ML VIAL IVP SCH (09:46)
[2023-05-26] MEDS: bisacodyL 5 MG TABLET.DR PO PRN (09:51)
--- NOTE | 2023-05-26 11:37 | P.PN ---
Subjective Progress Note Date: 05/26/23 CHIEF COMPLAINT: Nausea and vomiting HISTORY OF PRESENT ILLNESS: Patient continues to feel nauseated with dry heaves. She reports that it is improving since admission. She is having flatus. No bowel movement. Afebrile. WBC is down from 11 to 9.93HB 12.6 platelets 277 PHYSICAL EXAM: VITAL SIGNS: Reviewed. GENERAL: Well-developed in no acute distress. ABDOMEN: Soft. Nondistended. Minimal tenderness at incision sites. Incision site is clean dry and intact. NEUROLOGIC: Alert and oriented. Cranial nerves II through XII grossly intact. ASSESSMENT: 1. Intractable nausea and vomiting 2. Postoperative nausea 3. Dehydration 4. Status post laparoscopic sleeve gastrectomy and repair of paraesophageal hiatal hernia 5. Leukocytosis PLAN: -Continue Decadron -Continue antiemetics -Continue bariatric clear -Continue IV fluids -Encourage patient to ambulate -GI prophylaxis Protonix and DVT prophylaxis subcu heparin Physician Plastic Molding Operator note has been reviewed by physician. Signing provider agrees with the documented findings, assessment, and plan of care. Objective - Vital Signs Vital signs: Vital Signs Temp 98.9 F 05/26/23 07:21 Pulse 65 05/26/23 07:21 Resp 18 05/26/23 07:21 BP 175/89 05/26/23 07:21 Pulse Ox 94 L 05/26/23 07:21 FiO2 Intake & Output 05/25/23 05/26/23 05/26/23 18:59 06:59 18:59 Intake Total 150 Balance 150 Intake: Oral 150 Other: Voiding Method Toilet # Voids 2 - Labs CBC & Chem 7: 05/25/23 05:30 05/25/23 05:30
[2023-05-27] MEDS: DEXAMETHASONE SOD PHOSPHATE 4 MG/ML 1 ML VIAL IVP SCH ×4 (01:01→18:11)
[2023-05-27] MEDS: METOCLOPRAMIDE 5 MG/ML 2 ML VIAL IVP SCH ×4 (01:01→18:11)
[2023-05-27] MEDS: SODIUM CHLORIDE 0.9% 1,000 ML IV SCH ×3 (01:41→17:26)
[2023-05-27] MEDS: LEVOTHYROXINE 75 MCG TAB PO SCH (06:58)
[2023-05-27] MEDS: HEPARIN SODIUM,PORCINE 5,000 UNIT/ML 1 ML VIAL SQ SCH ×2 (09:07→21:13)
[2023-05-27] MEDS: lisinopriL 10 MG TAB PO SCH (09:07)
[2023-05-27] MEDS: LORATADINE 10 MG TAB PO SCH (09:07)
[2023-05-27] MEDS: amLODIPine 5 MG TAB PO SCH (09:07)
[2023-05-27] MEDS: PANTOPRAZOLE 40 MG/10 ML VIAL IVP SCH (09:25)
[2023-05-27] MEDS: bisacodyL 5 MG TABLET.DR PO PRN (10:22)
[2023-05-27] MEDS: SCOPOLAMINE 1 MG/72 HR PATCH TRANSDERM SCH (16:00)
--- NOTE | 2023-05-27 16:22 | P.PN ---
Subjective Progress Note Date: 05/27/23 Principal diagnosis: Nausea and vomiting after a gastric sleeve surgery slight improvement overnight no events overnight toleratioing diet Objective - Vital Signs Vital signs: Vital Signs Temp 98.8 F 05/27/23 08:00 Pulse 64 05/27/23 08:00 Resp 16 05/27/23 08:00 BP 168/76 05/27/23 08:00 Pulse Ox 94 L 05/27/23 08:00 FiO2 Intake & Output 05/26/23 05/27/23 05/27/23 18:59 06:59 18:59 Intake Total 120 Balance 120 Intake: Oral 120 Other: Voiding Method Toilet # Voids 3 - Constitutional General appearance: Present: cooperative, obese - EENT Eyes: Present: PERRLA. Absent: scleral icterus - Neck Neck: Present: normal ROM. Absent: lymphadenopathy - Respiratory Respiratory: bilateral: CTA, negative: wheezing - Cardiovascular Rhythm: regular Heart sounds: normal: S1, S2 - Gastrointestinal General gastrointestinal: Present: normal bowel sounds, soft. Absent: rigid, tenderness, umbilical hernia, ventral hernia - Labs CBC & Chem 7: 05/25/23 05:30 05/25/23 05:30 Assessment and Plan (1) S/P gastric sleeve procedure Current Visit: Yes Status: Acute Code(s): Z90.3 - ACQUIRED ABSENCE OF STOMACH [PART OF] SNOMED Code(s): 237010231304715 Plan: she is improving will keep hospitalized this weekend
[2023-05-28] MEDS: SODIUM CHLORIDE 0.9% 1,000 ML IV SCH ×3 (01:12→17:07)
[2023-05-28] MEDS: METOCLOPRAMIDE 5 MG/ML 2 ML VIAL IVP SCH ×4 (05:48→17:04)
[2023-05-28] MEDS: DEXAMETHASONE SOD PHOSPHATE 4 MG/ML 1 ML VIAL IVP SCH ×4 (05:48→17:04)
[2023-05-28] MEDS: LEVOTHYROXINE 75 MCG TAB PO SCH (05:48)
[2023-05-28] MEDS: PANTOPRAZOLE 40 MG/10 ML VIAL IVP SCH (08:36)
[2023-05-28] MEDS: LORATADINE 10 MG TAB PO SCH (08:57)
[2023-05-28] MEDS: lisinopriL 10 MG TAB PO SCH (08:57)
[2023-05-28] MEDS: amLODIPine 5 MG TAB PO SCH (08:57)
[2023-05-28] MEDS: bisacodyL 5 MG TABLET.DR PO PRN (08:57)
[2023-05-28] MEDS: HEPARIN SODIUM,PORCINE 5,000 UNIT/ML 1 ML VIAL SQ SCH ×2 (08:57→20:17)
[2023-05-28] MEDS: ONDANSETRON 4 MG/2 ML VIAL IVP PRN (09:40)
--- NOTE | 2023-05-28 10:52 | P.PN ---
Progress Note - Text Progress Note Date: 05/28/23 Patient feels slightly better. She still not sure she's ready go home. On exam vital signs are stable. Abdomen soft. Postoperative nausea slowly resolving after laparoscopic sleeve gastric. Patient will be discharged home tomorrow.
[2023-05-29] MEDS: METOCLOPRAMIDE 5 MG/ML 2 ML VIAL IVP SCH ×3 (00:13→11:17)
[2023-05-29] MEDS: DEXAMETHASONE SOD PHOSPHATE 4 MG/ML 1 ML VIAL IVP SCH ×3 (00:13→11:17)
[2023-05-29] MEDS: SODIUM CHLORIDE 0.9% 1,000 ML IV SCH ×2 (00:14→12:40)
[2023-05-29] MEDS: LEVOTHYROXINE 75 MCG TAB PO SCH (05:25)
[2023-05-29 07:40] VITALS: PULSE 51
[2023-05-29] MEDS: lisinopriL 10 MG TAB PO SCH (08:25)
[2023-05-29] MEDS: LORATADINE 10 MG TAB PO SCH (08:25)
[2023-05-29] MEDS: amLODIPine 5 MG TAB PO SCH (08:25)
[2023-05-29] MEDS: HEPARIN SODIUM,PORCINE 5,000 UNIT/ML 1 ML VIAL SQ SCH (08:25)
[2023-05-29] MEDS: PANTOPRAZOLE 40 MG/10 ML VIAL IVP SCH (08:25)
--- NOTE | 2023-05-29 11:19 | P.DS ---
Providers Date of admission: 05/24/23 13:29 Expected date of discharge: 05/29/23 Attending physician: Kaushal Mead Primary care physician: Farrah Deo [facility] Course: Discharge diagnosis 1. Intractable nausea and vomiting 2. Postoperative nausea 3. Dehydration 4. Status post laparoscopic sleeve gastrectomy and repair of paraesophageal hiatal hernia Hospital course This is a 62-year-old female with history of laparoscopic sleeve gastrectomy and repair of paraesophageal hiatal hernia. She presented with nausea and vomiting. This has resolved. Computed tomography scan abdomen and pelvis showed no evidence of leak. Patient is tolerating diet. Pain is controlled. She is up and ambulating. She is afebrile. She is stable for discharge. Please refer to chart for any further details. Physician Batch Dumper note has been reviewed by physician. Signing provider agrees with the documented findings, assessment, and plan of care. Patient Condition at Discharge: Stable Plan - Discharge Summary New Discharge Prescriptions: Continue amLODIPine [Norvasc] 5 mg PO DAILY Meclizine [Antivert] 25 mg PO DAILY PRN PRN Reason: Vertigo Budesonide/Formoterol Fumarate [Symbicort 160-4.5 Mcg Inhaler] 1 - 2 puff INHALATION RT-DAILY PRN PRN Reason: Shortness Of Breath Simethicone 40 mg/0.6 ml Drops [Mylicon Drops] 40 mg PO PCHS PRN #30 ml PRN Reason: Gas Omeprazole [PriLOSEC] 40 mg PO DAILY #30 cap Ondansetron Odt [Zofran ODT] 4 mg PO Q8HR PRN #9 tab PRN Reason: Nausea Levothyroxine Sodium [Synthroid] 75 mcg PO DAILY lisinopriL [Zestril] 10 mg PO DAILY Cetirizine HCl 10 mg PO DAILY Albuterol Inhaler [Ventolin Hfa Inhaler] 1 - 2 puff INHALATION RT-Q6H PRN PRN Reason: Wheezing bisacodyL [Dulcolax] 5 mg PO DAILY PRN #10 tab PRN Reason: Constipation HYDROcodone/APAP 5-325MG [[place] 5-325] 1 tab PO Q6HR PRN 2 Days #5 tab PRN Reason: Pain Discharge Medication List Cetirizine HCl 10 mg PO DAILY 07/22/22 [History] amLODIPine [Norvasc] 5 mg PO DAILY 07/22/22 [History] lisinopriL [Zestril] 10 mg PO DAILY 07/22/22 [History] Albuterol Inhaler [Ventolin Hfa Inhaler] 1 - 2 puff INHALATION RT-Q6H PRN 05/16/23 [History] Budesonide/Formoterol Fumarate [Symbicort 160-4.5 Mcg Inhaler] 1 - 2 puff INHALATION RT-DAILY PRN 05/16/23 [History] Meclizine [Antivert] 25 mg PO DAILY PRN 05/16/23 [History] HYDROcodone/APAP 5-325MG [[place] 5-325] 1 tab PO Q6HR PRN 2 Days #5 tab 05/23/23 [Rx] Omeprazole [PriLOSEC] 40 mg PO DAILY #30 cap 05/23/23 [Rx] Ondansetron Odt [Zofran ODT] 4 mg PO Q8HR PRN #9 tab 05/23/23 [Rx] Simethicone 40 mg/0.6 ml Drops [Mylicon Drops] 40 mg PO PCHS PRN #30 ml 05/23/23 [Rx] bisacodyL [Dulcolax] 5 mg PO DAILY PRN #10 tab 05/23/23 [Rx] Levothyroxine Sodium [Synthroid] 75 mcg PO DAILY 05/24/23 [History] Follow up Appointment(s)/Referral(s): Farrah Desouza MD [Primary Care Provider] - 1-2 days [place], [place] [NON-STAFF] - 1 Week Discharge Disposition: HOME SELF-CARE
[2023-05-29 15:09] VITALS: BP 138/82; RESP 18; TEMP 98.6
== END 2023-05-29 17:19 | disposition home or self-care (01) ==
LOC: EC 05:31 → 4SSUR 13:29
PROVIDERS: ADMIT Surgery; ATTEND Surgery
DX: K91.0 Vomiting following gastrointestinal surgery (principal); K95.89 Other complications of other bariatric procedure; K21.9 Gastro-esophageal reflux disease without esophagitis; I10 Essential (primary) hypertension; F32.A Depression, unspecified; E86.0 Dehydration; D72.829 Elevated white blood cell count, unspecified; Y83.6 Removal of other organ (partial) (total) as the cause of abnormal reaction of the patient, or of later complication, without mention of misadventure at the time of the procedure; Z79.899 Other long term (current) drug therapy; Z79.890 Hormone replacement therapy; Z88.2 Allergy status to sulfonamides; Z87.891 Personal history of nicotine dependence
CPT/HCPCS: 96360; 96361 ×2; 96372; 99285; 36415; 80053 ×2; 85025 ×2; 81003; 74177; G0378 ×6; J0780; J1644 ×6; J1100 ×5; J2765 ×6; J2405 ×4; C9113 ×6; Q9967

== ENCOUNTER → 2023-06-05 | Outpatient (CLI) | payer MEDICARE, OTHER ==
[2023-06-05 11:59] VITALS: BMI 33.8
[2023-06-05 12:55] VITALS: BP 121/86; PULSE 57; TEMP 97.7
== END ==
LOC: BARWHC3 10:39
PROVIDERS: ATTEND Surgery
DX: E66.01 Morbid (severe) obesity due to excess calories (principal); Z71.3 Dietary counseling and surveillance; Z68.33 Body mass index [BMI] 33.0-33.9, adult; Z88.2 Allergy status to sulfonamides
CPT/HCPCS: 97802; G0463; 99211

== ENCOUNTER → 2023-06-09 | Outpatient (CLI) | payer MEDICARE, OTHER ==
--- NOTE | 2023-06-12 07:34 | MM ---
Reason for Exam: Screening (asymptomatic). Last mammogram was performed 1 year(s) and 2 month(s) ago. Patient History: Menarche at age 12. First Full-Term at age 15. Postmenopausal. Patient has history of breast feeding. Paternal grandmother had breast cancer, age 60. Risk Values: Imelda 5 year model risk: 1.1%. NCI Lifetime model risk: 4.9%. Prior Study Comparison: 03/03/2006 Bilateral Screening Mammogram, [facility]. 03/17/2006 Right Diagnostic Mammogram, [facility]. 05/18/2007 Bilateral Screening Mammogram, [facility]. Tissue Density: The breast tissue is heterogeneously dense. This may lower the sensitivity of mammography. Findings: Analyzed By CAD. There is no suspicious group of microcalcifications or new suspicious mass. Benign-appearing calcifications bilaterally. Overall Assessment: Benign, BI-RAD 2 Management: Screening Mammogram of both breasts in [address] [facility] will attempt to contact patient to return for supplemental views and ultrasound if indicated. Patient should continue monthly self-breast exams. A clinical breast exam by your physician is recommended on an annual basis. This exam should not preclude additional follow-up of suspicious palpable abnormalities. Note on Imelda scores and lifetime risk: 1. A Imelda score greater than 3% is considered moderate risk. If this is the case, consider specialist referral to assess eligibility for a risk reducing agent. 2. If overall lifetime risk for the development of breast cancer is 20% or higher, the patient may qualify for future screening with alternating mammogram and breast MRI. Electronically signed and approved by: Gabriel Winn DO
== END | disposition home or self-care (01) ==
LOC: RADMAMWWP 12:26
PROVIDERS: ATTEND Internal Medicine
DX: Z12.31 Encounter for screening mammogram for malignant neoplasm of breast (principal); Z80.3 Family history of malignant neoplasm of breast; Z78.0 Asymptomatic menopausal state
CPT/HCPCS: 77063; 77067

== ENCOUNTER → 2023-06-19 | Outpatient (CLI) | payer MEDICARE, OTHER ==
[2023-06-19 12:35] VITALS: BMI 32.7
[2023-06-19 13:34] VITALS: BP 150/94; PULSE 86; TEMP 98
--- NOTE | 2023-06-20 09:22 | P.HPBAR ---
Bariatric H&P - History & Physicial H&P Date: 06/19/23 History & Physicial: Visit/CC: 1 month sleeve F/U Patient initial contact: Initial weight: Initial weight in pounds: Height: 5 ft 2 in Initial BMI: Last weight: Current weight: 81.193 kg Current weight in pounds: 179.00 Current BMI: 32.7 [place] body weight (based on NIH guidelines): 49.895 kg Excess body weight loss: The patient is a 63 year-old F who presents for Bariatric Assessment. Patient presents today for sleeve gastrectomy follow-up. She has had some minimal plaints of nausea. She has had excellent weight loss. She is lost 6 pounds since her last visit. She has had very minimal gerd. 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 ORIF LT WRIST. Sleeve gastrectomy 05-22-23 Past Anesthesia/Blood Transfusion Reactions: No Reported Reaction Past Psychological History: Depression Smoking Status: Former smoker Past Alcohol Use History: Rare Additional Past Alcohol Use History / Comment(s): quit 1992 Past Drug Use History: None Reported - Past Family History Mother Family Medical History: Cancer Sister(s) Family Medical History: Cancer Surgical - Exam Vital Signs Temp Pulse BP 98 F 86 150/94 06/19/23 12:41 06/19/23 12:41 06/19/23 12:41 - General well developed, well nourished, no distress - Eyes PERRL - ENT normal pinna, normal mucosa - Neck no masses - Respiratory normal expansion - Cardiovascular Rhythm: regular - Abdomen Abdomen: soft, non tender Bariatric Assessment & Plan Plan: Status post sleeve yesterday. Patient is excellent weight loss. Her gerd is minimal will be observed. She will follow-up in 4 weeks. Bariatric Checklist Checklist: Plan: Checklist: EGD: 1. Hiatal hernia: 2. H. Pylori: HgbA1c: Vitamin D: Smoking: Primary care physician referral: Deo Psychiatry clearance: Cardiology clearance: Sleep study: Diet journal: VTE risk score: VTE risk level: Rehab needs at discharge:
== END ==
LOC: BARWHC3 10:15
PROVIDERS: ATTEND Surgery
DX: E66.01 Morbid (severe) obesity due to excess calories (principal); Z68.32 Body mass index [BMI] 32.0-32.9, adult; Z88.2 Allergy status to sulfonamides; Z71.3 Dietary counseling and surveillance
CPT/HCPCS: 97803; G0463; 99211

== ENCOUNTER 2023-06-21 20:07 | Observation (INO) | payer MEDICARE, OTHER ==
--- NOTE | 2023-06-21 22:29 | ED ---
General Adult HPI - General Chief complaint: Nausea/Vomiting/Diarrhea Stated complaint: Nausea constipation Time Seen by Provider: 06/21/23 22:28 Source: patient Mode of arrival: ambulatory - History of Present Illness Initial comments: 63-year-old female presenting with chief complaint of nausea vomiting and constipation. Patient had gastric sleeve surgery with Dr. Larson on 05/22. She last saw her surgeon on Monday and states on Monday her symptoms started. She denies any abdominal pain. No fever, chills, rectal bleeding, hematemesis, hematochezia, melena. No chest pain or difficulty breathing. - Related Data Home Medications Medication Instructions Recorded Confirmed Cetirizine HCl 10 mg PO DAILY 07/22/22 06/19/23 amLODIPine [Norvasc] 5 mg PO DAILY 07/22/22 06/19/23 lisinopriL [Zestril] 10 mg PO DAILY 07/22/22 06/19/23 Albuterol Inhaler [Ventolin Hfa 1 - 2 puff INHALATION RT-Q6H PRN 05/16/23 06/19/23 Inhaler] Budesonide/Formoterol Fumarate 1 - 2 puff INHALATION RT-DAILY PRN 05/16/23 06/19/23 [Symbicort 160-4.5 Mcg Inhaler] Meclizine [Antivert] 25 mg PO DAILY PRN 05/16/23 06/19/23 Levothyroxine Sodium [Synthroid] 75 mcg PO DAILY 05/24/23 06/19/23 Previous Rx's Medication Instructions Recorded HYDROcodone/APAP 5-325MG [[place] 1 tab PO Q6HR PRN 2 Days #5 tab 05/23/23 5-325] Omeprazole [PriLOSEC] 40 mg PO DAILY #30 cap 05/23/23 Ondansetron Odt [Zofran ODT] 4 mg PO Q8HR PRN #9 tab 05/23/23 Simethicone 40 mg/0.6 ml Drops 40 mg PO PCHS PRN #30 ml 05/23/23 [Mylicon Drops] bisacodyL [Dulcolax] 5 mg PO DAILY PRN #10 tab 05/23/23 Allergies Allergy/AdvReac Type Severity Reaction Status Date / Time Sulfa (Sulfonamide Allergy Rash/Hives Verified 05/24/23 12:15 Antibiotics) Review of Systems ROS Statement: Those systems with pertinent positive or pertinent negative responses have been documented in the HPI. ROS Other: All systems not noted in ROS Statement are negative. 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 ORIF LT WRIST. Sleeve gastrectomy 05-22-23 Past Anesthesia/Blood Transfusion Reactions: No Reported Reaction Past Psychological History: Depression Smoking Status: Former smoker Past Alcohol Use History: Rare Past Drug Use History: None Reported - Past Family History Mother Family Medical History: Cancer Sister(s) Family Medical History: Cancer General Exam - General Exam Comments Initial Comments: Visual Physical Exam Vital signs reviewed General: Well-appearing, nontoxic, no acute distress. Head: Normocephalic, atraumatic Eyes: PERRLA, EOMI ENT: Airway patent Chest: Nonlabored breathing Skin: No visual rash, normal skin tone Neuro: Alert and oriented 3 Musculoskeletal: No gross abnormalities General appearance: alert, in no apparent distress Head exam: Present: atraumatic, normocephalic Eye exam: Present: normal appearance Neck exam: Present: normal inspection Respiratory exam: Present: normal lung sounds bilaterally. Absent: respiratory distress, wheezes, rales, rhonchi, stridor Cardiovascular Exam: Present: regular rate, normal rhythm, normal heart sounds. Absent: systolic murmur, diastolic murmur, rubs, gallop, clicks GI/Abdominal exam: Present: soft. Absent: distended, tenderness, guarding, rebound, rigid Neurological exam: Present: alert, oriented X3 Psychiatric exam: Present: normal affect, normal mood Skin exam: Present: warm, dry Course Vital Signs 06/21/23 06/22/23 20:14 01:30 Temperature 97.6 F Pulse Rate 96 99 Respiratory 18 22 Rate Blood Pressure 138/88 174/90 O2 Sat by Pulse 97 100 Oximetry Medical Decision Making - Medical Decision Making Was pt. sent in by a medical professional or institution (GORDON Rey, BAND INSTRUMENT REPAIRER, urgent care, hospital, or jail...) When possible be specific @ -No Did you speak to anyone other than the patient for history (EMS, parent, family, police, friend...)? What history was obtained from this source @ -No Did you review nursing and triage notes (agree or disagree)? Why? @ -I reviewed and agree with nursing and triage notes Were old charts reviewed (outside hosp., previous admission, EMS record, old EKG, old radiological studies, urgent care reports/EKG's, jail records)? Report findings @ -No old charts were reviewed Differential Diagnosis (chest pain, altered mental status, abdominal pain women, abdominal pain men, vaginal bleeding, weakness, fever, dyspnea, syncope, headache, dizziness, GI bleed, back pain, seizure, CVA, palpatations, mental health, musculoskeletal)? @ -Differential includes bariatric surgery related nausea and vomiting, pancreatitis, appendicitis, cholecystitis, bowel obstruction, colitis, this is not an all-inclusive list EKG interpreted by me (3pts min.). @ -As above X-rays interpreted by me (1pt min.). @ -None done CT interpreted by me (1pt min.). @ -CT shows no acute findings. Redemonstrated infarct of the medial spleen. U/S interpreted by me (1pt. min.). @ -None done What testing was considered but not performed or refused? (CT, X-rays, U/S, labs)? Why? @ -None What meds were considered but not given or refused? Why? @ -None Did you discuss the management of the patient with other professionals (professionals i.e. GORDON Rey, BAND INSTRUMENT REPAIRER, lab, RT, psych nurse, neonatal social worker, furniture upholsterer apprentice, teacher, chief technology officer, case filler)? Give summary @ -I spoke with Dr. Desouza who accepted admission Was smoking cessation discussed for >3mins.? @ -No Was critical care preformed (if so, how long)? @ -No Were there social determinants of health that impacted care today? How? (Homelessness, low income, unemployed, alcoholism, drug addiction, transportation, low edu. Level, literacy, decrease access to med. care, assisted, rehab)? @ -No Was there de-escalation of care discussed even if they declined (Discuss DNR or withdrawal of care, Hospice)? DNR status @ -No What co-morbidities impacted this encounter? (DM, HTN, Smoking, COPD, CAD, Cancer, CVA, ARF, Chemo, Hep., AIDS, mental health diagnosis, sleep apnea, morbid obesity)? @ -None Was patient admitted / discharged? Hospital course, mention meds given and route, prescriptions, significant lab abnormalities, going to OR and other pertinent info. @ -63-year-old female present with chief complaint of nausea vomiting and constipation. She has history of recent bariatric surgery [address] Mead. Workup is initiated in triage. CBC CMP amylase and lipase required no further action. CT shows no acute process. After Zofran and Reglan and Compazine the patient continued to have nausea and vomiting. She will be admitted for observation with antiemetics. Her surgeon is consulted. She is agreeable with this plan. I discussed this case with my attending Dr. Mckeon Undiagnosed new problem with uncertain prognosis? @ -No Drug Therapy requiring intensive monitoring for toxicity (Heparin, Nitro, Insulin, Cardizem)? @ -No Were any procedures done? @ -No Diagnosis/symptom? @ -Intractable nausea and vomiting Acute, or Chronic, or Acute on Chronic? @ -Acute Uncomplicated (without systemic symptoms) or Complicated (systemic symptoms)? @ -Complicated Side effects of treatment? @ -No Exacerbation, Progression, or Severe Exacerbation? @ -No Poses a threat to life or bodily function? How? (Chest pain, [place], [place], pneumonia, PE, COPD, DKA, ARF, appy, cholecystitis, CVA, Diverticulitis, Homicidal, Suicidal, threat to staff... and all critical care pts) @ -Yes - Lab Data Result diagrams: 06/21/23 22:54 06/21/23 22:54 Lab Results 06/21/23 06/21/23 Range/Units 22:54 22:54 WBC 5.8 (3.8-10.6) k/uL RBC 5.12 (3.80-5.40) m/uL Hgb 14.9 (11.4-16.0) gm/dL Hct 44.8 (34.0-46.0) % MCV 87.6 (80.0-100.0) fL MCH 29.2 (25.0-35.0) pg MCHC 33.3 (31.0-37.0) g/dL RDW 13.6 (11.5-15.5) % Plt Count 261 (150-450) k/uL MPV 7.8 Neutrophils % 71 % Lymphocytes % 20 % Monocytes % 5 % Eosinophils % 2 % Basophils % 0 % Neutrophils # 4.1 (1.3-7.7) k/uL Lymphocytes # 1.2 (1.0-4.8) k/uL Monocytes # 0.3 (0-1.0) k/uL Eosinophils # 0.1 (0-0.7) k/uL Basophils # 0.0 (0-0.2) k/uL Sodium 139 (137-145) mmol/L Potassium 4.9 (3.5-5.1) mmol/L Chloride 106 (98-107) mmol/L Carbon Dioxide 19 L (22-30) mmol/L Anion Gap 14 mmol/L BUN 16 (7-17) mg/dL Creatinine 0.52 (0.52-1.04) mg/dL Est GFR (CKD-EPI)AfAm >90 (>60 ml/min/1.73 sqM) Est GFR (CKD-EPI)NonAf >90 (>60 ml/min/1.73 sqM) Glucose 119 H (74-99) mg/dL Calcium 9.7 (8.4-10.2) mg/dL Total Bilirubin 1.5 H (0.2-1.3) mg/dL AST 34 (14-36) U/L ALT 29 (4-34) U/L Alkaline Phosphatase 96 (38-126) U/L Total Protein 7.2 (6.3-8.2) g/dL Albumin 4.6 (3.5-5.0) g/dL Amylase 47 (30-110) U/L Lipase 116 (23-300) U/L Disposition Clinical Impression: Intractable nausea and vomiting Disposition: ADMITTED IP TO THIS [facility] Condition: Fair Referrals: Farrah Desouza MD [Primary Care Provider] - 1-2 days Time of Disposition: 04:22
[2023-06-21] MEDS: ONDANSETRON 4 MG/2 ML VIAL IVP STA (22:56)
[2023-06-21 23:02] LABS: Basophils % (A) 0 %; Eosinophils # (A) 0.1 k/uL (0-0.7); Eosinophils % (A) 2 %; HCT 44.8 % (34.0-46.0); HGB 14.9 gm/dL (11.4-16.0); Lymphocytes # (A) 1.2 k/uL (1.0-4.8); Lymphocytes % (A) 20 %; MCH 29.2 pg (25.0-35.0); MCHC 33.3 g/dL (31.0-37.0); MCV 87.6 fL (80.0-100.0); Mean Platelet Volume 7.8; Monocytes # (A) 0.3 k/uL (0-1.0); Monocytes % (A) 5 %; Neutrophils # (A) 4.1 k/uL (1.3-7.7); Neutrophils % (A) 71 %; Platelet Count 261 k/uL (150-450); RBC 5.12 m/uL (3.80-5.40); RDW 13.6 % (11.5-15.5); WBC 5.8 k/uL (3.8-10.6)
[2023-06-21 23:15] LABS: ALT 29 U/L (4-34); African American GFR (CKD) >90 (>60 ml/min/1.73 sqM); Albumin 4.6 g/dL (3.5-5.0); Amylase 47 U/L (30-110); Anion Gap 14 mmol/L; Blood Urea Nitrogen 16 mg/dL (7-17); Calcium 9.7 mg/dL (8.4-10.2); Carbon Dioxide 19 mmol/L (22-30); Chloride 106 mmol/L (98-107); Glucose 119 mg/dL (74-99); Lipase 116 U/L (23-300); Non-African American GFR(CKD) >90 (>60 ml/min/1.73 sqM); Sodium 139 mmol/L (137-145); Total Bilirubin 1.5 mg/dL (0.2-1.3); Total Protein 7.2 g/dL (6.3-8.2)
[2023-06-21 23:17] LABS: AST 34 U/L (14-36); Alkaline Phosphatase 96 U/L (38-126); Potassium 4.9 mmol/L (3.5-5.1)
--- NOTE | 2023-06-22 00:01 | CT ---
EXAM: CT Abdomen and Pelvis With Intravenous Contrast CLINICAL HISTORY: ITS.REASON CT Reason: N/V/D TECHNIQUE: Axial computed tomography images of the abdomen and pelvis with intravenous contrast. CTDI is 22.7 mGy and DLP is 1109 mGy-cm. This CT exam was performed using one or more of the following dose reduction techniques: automated exposure control, adjustment of the mA and/or kV according to patient size, and/or use of iterative reconstruction technique. COMPARISON: No relevant prior studies available. FINDINGS: Lung bases: Unremarkable. No mass. No consolidation. ABDOMEN: Liver: Unremarkable. No mass. Gallbladder and bile ducts: Unremarkable. No calcified stones. No ductal dilation. Pancreas: Unremarkable. No mass. No ductal dilation. Spleen: Redemonstrated infarct of the medial spleen. Adrenals: Unremarkable. No mass. Kidneys and ureters: Symmetric renal enhancement. No hydronephrosis. Stomach and bowel: Oral contrast administered. Fluid in the distal esophagus suggesting reflux. Postoperative changes of gastric sleeve. No bowel obstruction. No mucosal thickening. PELVIS: Appendix: Appendix not visualized. Bladder: Decompressed urinary bladder. Reproductive: Calcified uterine fibroid. ABDOMEN and PELVIS: Intraperitoneal space: Unremarkable. No free air. No significant fluid collection. Bones/joints: No acute fracture or dislocation. Soft tissues: Tiny fat-containing umbilical hernia. Vasculature: Unremarkable. No abdominal aortic aneurysm. Lymph nodes: Unremarkable. No enlarged lymph nodes. IMPRESSION: 1. No acute findings. 2. Redemonstrated infarct of the medial spleen.
[2023-06-22] MEDS: KETOROLAC 15 MG/ML 1 ML VIAL IVP STA (02:09)
[2023-06-22] MEDS: METOCLOPRAMIDE 5 MG/ML 2 ML VIAL IVP STA (02:10)
[2023-06-22] MEDS: PROCHLORPERAZINE INJ 10 MG/2 ML VIAL IVP STA (03:30)
[2023-06-22] MEDS ORDERED: KETOROLAC 15 MG/ML 1 ML VIAL IVP PRN (04:19)
[2023-06-22] MEDS ORDERED: NALOXONE 0.4 MG/ML 1 ML VIAL IV PRN (04:19)
[2023-06-22] MEDS: SODIUM CHLORIDE 0.9% 1,000 ML IV ONE (05:18)
[2023-06-22] MEDS: SODIUM CHLORIDE 0.9% 1,000 ML IV SCH (05:18)
[2023-06-22] MEDS: ONDANSETRON 4 MG/2 ML VIAL IVP PRN (08:07)
[2023-06-22] MEDS ORDERED: MECLIZINE 25 MG TAB PO PRN (08:10)
[2023-06-22] MEDS ORDERED: bisacodyL 5 MG TABLET.DR PO PRN (08:10)
[2023-06-22] MEDS ORDERED: ALBUTEROL NEBULIZED 2.5 MG/3 ML INHALATION PRN (08:10)
[2023-06-22] MEDS ORDERED: SYMBICORT 160-4.5 MCG INHALER INHALATION PRN (08:10)
--- NOTE | 2023-06-22 08:55 | P.HPIM ---
History of Present Illness H&P Date: 06/22/23 This is a 63-year-old female patient who presented with complaints of nausea and vomiting. Patient has past medical history of gastric sleeve procedure on 115.4. Patient reports she has been on a clear liquid diet did have follow-up appointment prior to that she starting earlier this week. Patient denies any recent illness. Patient denies any fevers at home. Patient reports that she is still having loose stools but is maintained on liquid diet. Additional medical history includes asthma, GERD, hypertension, thyroid disorder and gastric sleeve procedure on 05/22/23. Lab work revealing normal white blood cell 5.8. Creatinine 0.5 to bun 16. AST 34, ALT 29, alkaline phosphatase 96. Normal amylase and lipase levels. CT of abdomen and pelvis completed showing no acute findings redemonstrated infarct of the medial. Patient denies chest pain or shortness breath. Patient denies any urinary burning or frequency. Current vital signs temp 97.6, heart rate 96, respiratory rate 18, blood pressure 138/88 with a pulse ox 97%. At this time patient will be admitted. Surgical service is consulted. 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 ORIF LT WRIST. Sleeve gastrectomy 05-22-23 Past Anesthesia/Blood Transfusion Reactions: No Reported Reaction Past Psychological History: Depression Smoking Status: Former smoker Past Alcohol Use History: Rare Past Drug Use History: None Reported - Past Family History Mother Family Medical History: Cancer Sister(s) Family Medical History: Cancer Medications and Allergies Home Medications Medication Instructions Recorded Confirmed Type Cetirizine HCl 10 mg PO DAILY 07/22/22 06/22/23 History amLODIPine [Norvasc] 5 mg PO DAILY 07/22/22 06/22/23 History lisinopriL [Zestril] 10 mg PO DAILY 07/22/22 06/22/23 History Albuterol Inhaler [Ventolin Hfa 1 - 2 puff INHALATION RT-Q6H PRN 05/16/23 06/22/23 History Inhaler] Budesonide/Formoterol Fumarate 1 - 2 puff INHALATION RT-DAILY PRN 05/16/23 06/22/23 History [Symbicort 160-4.5 Mcg Inhaler] Meclizine [Antivert] 25 mg PO DAILY PRN 05/16/23 06/22/23 History Omeprazole [PriLOSEC] 40 mg PO DAILY #30 cap 05/23/23 06/22/23 Rx Ondansetron Odt [Zofran ODT] 4 mg PO Q8HR PRN #9 tab 05/23/23 06/22/23 Rx Simethicone 40 mg/0.6 ml Drops 40 mg PO PCHS PRN #30 ml 05/23/23 06/22/23 Rx [Mylicon Drops] bisacodyL [Dulcolax] 5 mg PO DAILY PRN #10 tab 05/23/23 06/22/23 Rx Levothyroxine Sodium [Synthroid] 75 mcg PO DAILY 05/24/23 06/22/23 History Allergies Allergy/AdvReac Type Severity Reaction Status Date / Time Sulfa (Sulfonamide Allergy Rash/Hives Verified 06/22/23 07:08 Antibiotics) Physical Exam Vitals: Vital Signs Temp Pulse Resp BP Pulse Ox 06/22/23 04:00 78 20 147/79 96 06/22/23 03:00 85 18 161/93 94 L 06/22/23 02:00 89 24 174/89 100 06/22/23 01:30 99 22 174/90 100 06/21/23 20:14 97.6 F 96 18 138/88 97 Intake and Output 06/21/23 06/22/23 06/22/23 22:59 06:59 14:59 Other: Weight 78.925 kg Head normocephalic Neck supple Lungs clear to auscultation bilaterally no wheezing or crackles Heart regular rate and rhythm S1-S2, no rub or gallop Abdomen is soft nontender nondistended positive bowel sounds no hepatosplenomegaly Extremities no edema Neuro alert and orientated to 3 Results CBC & Chem 7: 06/21/23 22:54 06/21/23 22:54 Labs: Abnormal Lab Results - Last 24 Hours (Table) 06/21/23 Range/Units 22:54 Carbon Dioxide 19 L (22-30) mmol/L Glucose 119 H (74-99) mg/dL Total Bilirubin 1.5 H (0.2-1.3) mg/dL Assessment and Plan Assessment: 1. Intractable nausea and vomiting 2. Recent gastric sleeve procedure 05/22/2023 3. History of GERD 4. History of asthma 5. History of thyroid disorder 6. History of essential hypertension DVT prophylaxis Protonix. GI prophylaxis SCDs Surgical service is consulted Repeat labs ordered Time with Patient: Greater than 30 (Greater than 60% of the total time spent in counseling and coordination of care)
[2023-06-22] MEDS: PROCHLORPERAZINE INJ 10 MG/2 ML VIAL IVP PRN (09:44)
[2023-06-22 09:55] LABS: Appearance,Urine Clear (Clear); Bilirubin,Urine Negative (Negative); Blood,Urine Negative (Negative); Color,Urine Light Yellow; Glucose,Urine (UA) Negative (Negative); Ketones,Urine 4+ (Negative); Leukocyte Esterase,Urine Negative (Negative); Mucus,Urine Rare /hpf; Nitrite,Urine Negative (Negative); PH, Urine 5.5 (5.0-8.0); Protein,Urine 1+ (Negative); RBC,Urine 1 /hpf (0-5); Specific Gravity,Urine 1.031 (1.001-1.035); Squamous Epithelial Cell,Urine 3 /hpf (0-4); Urobilinogen,Urine <2.0 mg/dL (<2.0); WBC,Urine 1 /hpf (0-5)
[2023-06-22] MEDS: PANTOPRAZOLE 40 MG/10 ML VIAL IVP SCH (10:21)
[2023-06-22] MEDS: METOCLOPRAMIDE 5 MG/ML 2 ML VIAL IVP PRN (11:01)
[2023-06-22] MEDS: LORATADINE 10 MG TAB PO SCH (11:06)
[2023-06-22] MEDS: lisinopriL 10 MG TAB PO SCH (11:06)
[2023-06-22] MEDS: LEVOTHYROXINE 75 MCG TAB PO SCH (11:06)
[2023-06-22] MEDS: amLODIPine 5 MG TAB PO SCH (11:06)
--- NOTE | 2023-06-22 13:34 | P.GSCN ---
History of Present Illness Consult date: 06/22/23 History of present illness: CHIEF COMPLAINT: Nausea and vomiting HISTORY OF PRESENT ILLNESS: This is a 63-year-old female who is status post sleeve gastrectomy on May 22, 2023. She presents to the hospital with complaints of nausea and vomiting that started 3 days ago. Patient still had some vomiting this morning. She is having flatus. Reports having diarrhea. She denies any abdominal pain. She had a CT scan abdomen pelvis that reported no acute findings. Patient denies any sick contacts. Denies any fever chills or sweats. PAST MEDICAL HISTORY: Asthma, GERD/Reflux, Hypertension, Thyroid Disorder PAST SURGICAL HISTORY: Adenoidectomy, Appendectomy, Bariatric Surgery, Orthopedic Surgery, Tonsillectomy, Sleeve gastrectomy 05-22-23 MEDICATIONS: See below ALLERGIES: See below SOCIAL HISTORY: No illicit drug use. REVIEW OF SYSTEMS: CONSTITUTIONAL: Denies fever or chills. HEENT: Denies blurred vision, vision changes, or eye pain. Denies hemoptysis CARDIOVASCULAR: Denies chest pain or pressure. RESPIRATORY: No shortness of breath. GASTROINTESTINAL: See HPI for pertinent findings HEMATOLOGIC: Denies bleeding disorders. GENITOURINARY: Denies any blood in urine or increased urinary frequency. SKIN: Denies pruitis. Denies rash. PHYSICAL EXAM: VITAL SIGNS: Reviewed GENERAL: Well-developed in no acute distress. HEENT: No sclera icterus. Extraocular movements grossly intact. Moist buccal mucosa. Head is atraumatic, normocephalic. No nasal drainage. ABDOMEN: Soft. Nondistended. nontender. Incision sites have healed NEUROLOGIC: Alert and oriented. Cranial nerves II through XII grossly intact. LABORATORY DATA: WBC is 5.8 Hgb 14.9 platelets 261 Sodium is 139 potassium is 4.9 creatinine 0.52 Total bili 1.5 AST 34 ALT 29 alk phos 96 lipase 116 urinalysis negative for infection IMAGING: CT scan abdomen pelvis reports no acute findings. Redemonstrated infarct of the medial spleen. ASSESSMENT: 1. Intractable nausea and vomiting 2. Dehydration 3. Status post recent sleeve gastrectomy May 22, 2023 PLAN: -Keep patient n.p.o. -Continue IV fluid hydration -Continue antiemetics -Encourage patient to ambulate -Continue to monitor Thank you for this consultation Physician Cosmetic Sales note has been reviewed by physician. Signing provider agrees with the documented findings, assessment, and plan of care. 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 ORIF LT WRIST. Sleeve gastrectomy 05-22-23 Past Anesthesia/Blood Transfusion Reactions: No Reported Reaction Past Psychological History: Depression Smoking Status: Former smoker Past Alcohol Use History: Rare Past Drug Use History: None Reported - Past Family History Mother Family Medical History: Cancer Sister(s) Family Medical History: Cancer Medications and Allergies Home Medications Medication Instructions Recorded Confirmed Type Cetirizine HCl 10 mg PO DAILY 07/22/22 06/22/23 History amLODIPine [Norvasc] 5 mg PO DAILY 07/22/22 06/22/23 History lisinopriL [Zestril] 10 mg PO DAILY 07/22/22 06/22/23 History Albuterol Inhaler [Ventolin Hfa 1 - 2 puff INHALATION RT-Q6H PRN 05/16/23 06/22/23 History Inhaler] Budesonide/Formoterol Fumarate 1 - 2 puff INHALATION RT-DAILY PRN 05/16/23 06/22/23 History [Symbicort 160-4.5 Mcg Inhaler] Meclizine [Antivert] 25 mg PO DAILY PRN 05/16/23 06/22/23 History Omeprazole [PriLOSEC] 40 mg PO DAILY #30 cap 05/23/23 06/22/23 Rx Ondansetron Odt [Zofran ODT] 4 mg PO Q8HR PRN #9 tab 05/23/23 06/22/23 Rx Simethicone 40 mg/0.6 ml Drops 40 mg PO PCHS PRN #30 ml 05/23/23 06/22/23 Rx [Mylicon Drops] bisacodyL [Dulcolax] 5 mg PO DAILY PRN #10 tab 05/23/23 06/22/23 Rx Levothyroxine Sodium [Synthroid] 75 mcg PO DAILY 05/24/23 06/22/23 History Allergies Allergy/AdvReac Type Severity Reaction Status Date / Time Sulfa (Sulfonamide Allergy Rash/Hives Verified 06/22/23 07:08 Antibiotics) Surgical - Exam Vital Signs Temp Pulse Resp BP Pulse Ox 97.6 F 96 18 138/88 97 06/21/23 20:14 06/21/23 20:14 06/21/23 20:14 06/21/23 20:14 06/21/23 20:14 Results - Labs 06/21/23 22:54 06/21/23 22:54 Abnormal Lab Results - Last 24 Hours (Table) 06/21/23 06/22/23 Range/Units 22:54 09:25 Carbon Dioxide 19 L (22-30) mmol/L Glucose 119 H (74-99) mg/dL Total Bilirubin 1.5 H (0.2-1.3) mg/dL Urine Protein 1+ H (Negative) Urine Ketones 4+ H (Negative) Urine Mucus Rare H (None) /hpf Diabetes panel 06/21/23 Range/Units 22:54 Sodium 139 (137-145) mmol/L Potassium 4.9 (3.5-5.1) mmol/L Chloride 106 (98-107) mmol/L Carbon Dioxide 19 L (22-30) mmol/L BUN 16 (7-17) mg/dL Creatinine 0.52 (0.52-1.04) mg/dL Glucose 119 H (74-99) mg/dL Calcium 9.7 (8.4-10.2) mg/dL AST 34 (14-36) U/L ALT 29 (4-34) U/L Alkaline Phosphatase 96 (38-126) U/L Total Protein 7.2 (6.3-8.2) g/dL Albumin 4.6 (3.5-5.0) g/dL Calcium panel 06/21/23 Range/Units 22:54 Calcium 9.7 (8.4-10.2) mg/dL Albumin 4.6 (3.5-5.0) g/dL Pituitary panel 06/21/23 Range/Units 22:54 Sodium 139 (137-145) mmol/L Potassium 4.9 (3.5-5.1) mmol/L Chloride 106 (98-107) mmol/L Carbon Dioxide 19 L (22-30) mmol/L BUN 16 (7-17) mg/dL Creatinine 0.52 (0.52-1.04) mg/dL Glucose 119 H (74-99) mg/dL Calcium 9.7 (8.4-10.2) mg/dL Adrenal panel 06/21/23 Range/Units 22:54 Sodium 139 (137-145) mmol/L Potassium 4.9 (3.5-5.1) mmol/L Chloride 106 (98-107) mmol/L Carbon Dioxide 19 L (22-30) mmol/L BUN 16 (7-17) mg/dL Creatinine 0.52 (0.52-1.04) mg/dL Glucose 119 H (74-99) mg/dL Calcium 9.7 (8.4-10.2) mg/dL Total Bilirubin 1.5 H (0.2-1.3) mg/dL AST 34 (14-36) U/L ALT 29 (4-34) U/L Alkaline Phosphatase 96 (38-126) U/L Total Protein 7.2 (6.3-8.2) g/dL Albumin 4.6 (3.5-5.0) g/dL
[2023-06-22] MEDS ORDERED: fentaNYL (PF) 50 MCG/ML 2 ML AMP ONE (22:25)
[2023-06-23 08:19] LABS: Basophils # (A) 0.03 X 10*3/uL (0.00-0.10); Basophils % (A) 0.5 %; Eosinophils # (A) 0.05 X 10*3/uL (0.04-0.35); Eosinophils % (A) 0.9 %; HCT 38.9 % (37.2-50.0); HGB 12.7 g/dL (12.0-17.0); Lymphocytes % (A) 27.3 %; MCH 28.8 pg (27.0-32.0); MCHC 32.6 g/dL (32.0-37.0); MCV 88.2 FL (80.0-97.0); Mean Platelet Volume 10.2 FL (9.5-12.2); Monocytes # (A) 0.41 X 10*3/uL (0.20-1.00); Monocytes % (A) 7.5 %; NRBC Per 100 WBC 0 X 10*3/uL (0.00-0.01); Neutrophils # (A) 3.48 X 10*3/uL (1.80-7.70); Neutrophils % (A) 63.4 %; Platelet Count 253 X 10*3/uL (140-440); RBC 4.41 X 10*6/uL (4.10-5.60); RDW 13.7 % (11.5-14.5); WBC 5.49 X 10*3/uL (4.50-10.00)
[2023-06-23 08:31] LABS: ALT 23 U/L (8-49); AST 16 U/L (13-35); Albumin 3.9 g/dL (3.8-4.9); Albumin/Globulin Ratio 2.05 Ratio (1.60-3.17); Alkaline Phosphatase 90 U/L (41-126); BUN/Creat Ratio 21.86 Ratio (12.00-20.00); Blood Urea Nitrogen 15.3 mg/dL (9.0-27.0); Calcium 9.3 mg/dL (8.7-10.3); Carbon Dioxide 23.7 mmol/L (21.6-31.8); Chloride 110 mmol/L (96-109); Globulin 1.9 g/dL (1.6-3.3); Glucose 88 mg/dL (70-110); Sodium 142 mmol/L (135-145); Total Bilirubin 0.8 mg/dL (0.3-1.2); Total Protein 5.8 g/dL (6.2-8.2)
--- NOTE | 2023-06-23 09:51 | P.PN ---
Subjective Progress Note Date: 06/23/23 This is a 63-year-old female patient who presented with complaints of nausea and vomiting. Patient has past medical history of gastric sleeve procedure on 115.4. Patient reports she has been on a clear liquid diet did have follow-up appointment prior to that she starting earlier this week. Patient denies any recent illness. Patient denies any fevers at home. Patient reports that she is still having loose stools but is maintained on liquid diet. Additional medical history includes asthma, GERD, hypertension, thyroid disorder and gastric sleeve procedure on 05/22/23. Lab work revealing normal white blood cell 5.8. Creatinine 0.5 to bun 16. AST 34, ALT 29, alkaline phosphatase 96. Normal am ylase and lipase levels. CT of abdomen and pelvis completed showing no acute findings redemonstrated infarct of the medial. Patient denies chest pain or shortness breath. Patient denies any urinary burning or frequency. Current vital signs temp 97.6, heart rate 96, respiratory rate 18, blood pressure 138/88 with a pulse ox 97%. At this time patient will be admitted. Surgical service is consulted. On 06/23/2023 patient is alert and oriented 3. Patient denies any nausea and vomiting for the past 12 hours. But patient also has been nothing by mouth. Awaiting further recommendations from surgical services. Current vital signs temp 98.3, heart rate 62, respiratory rate 16, blood pressure 138/81 with a pulse ox 97% on room air. Patient denies chest pain or shortness of breath. Patient denies nausea vomiting or diarrhea. Patient denies any urinary burning or frequency Objective - Vital Signs Vital signs: Vital Signs Temp 98.3 F 06/23/23 07:00 Pulse 62 06/23/23 07:00 Resp 16 06/23/23 07:00 BP 138/81 06/23/23 07:00 Pulse Ox 97 06/23/23 07:00 FiO2 Intake & Output 06/22/23 06/23/23 06/23/23 18:59 06:59 18:59 Weight 78.925 kg Other: Voiding Method Toilet Toilet # Voids 1 2 - Exam Head normocephalic Neck supple Lungs clear to auscultation bilaterally no wheezing or crackles Heart regular rate and rhythm S1-S2, no rub or gallop Abdomen is soft nontender nondistended positive bowel sounds no hepatosplenomegaly Extremities no edema Neuro alert and orientated to 3 - Labs CBC & Chem 7: 06/23/23 06:09 06/23/23 06:09 Labs: Abnormal Lab Results - Last 24 Hours (Table) 06/22/23 06/23/23 Range/Units 09:25 06:09 Chloride 110 H (96-109) mmol/L BUN/Creatinine Ratio 21.86 H (12.00-20.00) Ratio Total Protein 5.8 L (6.2-8.2) g/dL Urine Protein 1+ H (Negative) Urine Ketones 4+ H (Negative) Urine Mucus Rare H (None) /hpf Assessment and Plan Assessment: 1. Intractable nausea and vomiting 2. Recent gastric sleeve procedure 05/22/2023 3. History of GERD 4. History of asthma 5. History of thyroid disorder 6. History of essential hypertension DVT prophylaxis Protonix. GI prophylaxis SCDs Surgical service is consulted Patient currently nothing by mouth Repeat labs ordered
--- NOTE | 2023-06-23 11:41 | P.PN ---
Subjective Progress Note Date: 06/23/23 CHIEF COMPLAINT: Nausea and vomiting HISTORY OF PRESENT ILLNESS: Patient is nausea and vomiting has improved. She denies abdominal pain. She would like to eat. Afebrile. PHYSICAL EXAM: VITAL SIGNS: Reviewed. GENERAL: Well-developed in no acute distress. ABDOMEN: Soft. Nondistended. Nontender. NEUROLOGIC: Alert and oriented. Cranial nerves II through XII grossly intact. ASSESSMENT: 1. Intractable nausea and vomiting 2. Dehydration 3. Status post recent sleeve gastrectomy May 22, 2023 number PLAN: -Advance diet to full liquids -Patient can be discharged today if tolerating full liquid diet Physician Research Statistician note has been reviewed by physician. Signing provider agrees with the documented findings, assessment, and plan of care. Objective - Vital Signs Vital signs: Vital Signs Temp 98.3 F 06/23/23 07:00 Pulse 62 06/23/23 07:00 Resp 16 06/23/23 07:00 BP 138/81 06/23/23 07:00 Pulse Ox 97 06/23/23 07:00 FiO2 Intake & Output 06/22/23 06/23/23 06/23/23 18:59 06:59 18:59 Weight 78.925 kg Other: Voiding Method Toilet Toilet # Voids 1 2 - Labs CBC & Chem 7: 06/23/23 06:09 06/23/23 06:09 Labs: Abnormal Lab Results - Last 24 Hours (Table) 06/23/23 Range/Units 06:09 Chloride 110 H (96-109) mmol/L BUN/Creatinine Ratio 21.86 H (12.00-20.00) Ratio Total Protein 5.8 L (6.2-8.2) g/dL
[2023-06-23] MEDS: ONDANSETRON 4 MG/2 ML VIAL IVP PRN (18:24)
[2023-06-24 10:33] LABS: Basophils # (A) 0.03 X 10*3/uL (0.00-0.10); Basophils % (A) 0.6 %; Eosinophils # (A) 0.06 X 10*3/uL (0.04-0.35); Eosinophils % (A) 1.2 %; HCT 39.5 % (37.2-50.0); HGB 13.1 g/dL (12.0-17.0); Lymphocytes # (A) 1.36 X 10*3/uL (0.90-5.00); Lymphocytes % (A) 26.8 %; MCH 29.4 pg (27.0-32.0); MCHC 33.2 g/dL (32.0-37.0); MCV 88.8 FL (80.0-97.0); Mean Platelet Volume 10.4 FL (9.5-12.2); Monocytes # (A) 0.42 X 10*3/uL (0.20-1.00); Monocytes % (A) 8.3 %; NRBC Per 100 WBC 0 X 10*3/uL (0.00-0.01); Neutrophils % (A) 62.9 %; Platelet Count 253 X 10*3/uL (140-440); RBC 4.45 X 10*6/uL (4.10-5.60); RDW 13.6 % (11.5-14.5); WBC 5.08 X 10*3/uL (4.50-10.00)
[2023-06-24 10:47] LABS: ALT 28 U/L (8-49); AST 21 U/L (13-35); Albumin 3.9 g/dL (3.8-4.9); Albumin/Globulin Ratio 2.17 Ratio (1.60-3.17); Alkaline Phosphatase 91 U/L (41-126); BUN/Creat Ratio 24.17 Ratio (12.00-20.00); Blood Urea Nitrogen 14.5 mg/dL (9.0-27.0); Calcium 9.5 mg/dL (8.7-10.3); Carbon Dioxide 21.9 mmol/L (21.6-31.8); Chloride 107 mmol/L (96-109); Globulin 1.8 g/dL (1.6-3.3); Glucose 79 mg/dL (70-110); Potassium 3.5 mmol/L (3.5-5.5); Sodium 143 mmol/L (135-145); Total Bilirubin 1.1 mg/dL (0.3-1.2); Total Protein 5.7 g/dL (6.2-8.2)
--- NOTE | 2023-06-24 11:10 | P.PN ---
Subjective Progress Note Date: 06/24/23 Principal diagnosis: Hospitalized for nausea, dry heaves, one month after sleeve gastrectomy. Labs and imaging OK No nausea today and her thin oatmeal went down well for breakfast. Abdomen is nontender Condition improved from admission and see if this continues for another meal or so. Objective - Vital Signs Vital signs: Vital Signs Temp 97.4 F L 06/24/23 07:00 Pulse 67 06/24/23 07:00 Resp 18 06/24/23 07:00 BP 125/73 06/24/23 07:00 Pulse Ox 96 06/24/23 07:00 FiO2 Intake & Output 06/23/23 06/24/23 06/24/23 18:59 06:59 18:59 Intake Total 118 Balance 118 Intake: Oral 118 Other: Voiding Method Toilet # Voids 1 3 - Labs CBC & Chem 7: 06/24/23 06:25 06/24/23 06:25 Labs: Abnormal Lab Results - Last 24 Hours (Table) 06/24/23 Range/Units 06:25 Anion Gap 14.10 H (4.00-12.00) mmol/L BUN/Creatinine Ratio 24.17 H (12.00-20.00) Ratio Total Protein 5.7 L (6.2-8.2) g/dL
--- NOTE | 2023-06-24 11:31 | P.PN ---
Subjective Progress Note Date: 06/24/23 This is a 63-year-old female patient who presented with complaints of nausea and vomiting. Patient has past medical history of gastric sleeve procedure on 115.4. Patient reports she has been on a clear liquid diet did have follow-up appointment prior to that she starting earlier this week. Patient denies any recent illness. Patient denies any fevers at home. Patient reports that she is still having loose stools but is maintained on liquid diet. Additional medical history includes asthma, GERD, hypertension, thyroid disorder and gastric sleeve procedure on 05/22/23. Lab work revealing normal white blood cell 5.8. Creatinine 0.5 to bun 16. AST 34, ALT 29, alkaline phosphatase 96. Normal am ylase and lipase levels. CT of abdomen and pelvis completed showing no acute findings redemonstrated infarct of the medial. Patient denies chest pain or shortness breath. Patient denies any urinary burning or frequency. Current vital signs temp 97.6, heart rate 96, respiratory rate 18, blood pressure 138/88 with a pulse ox 97%. At this time patient will be admitted. Surgical service is consulted. On 06/23/2023 patient is alert and oriented 3. Patient denies any nausea and vomiting for the past 12 hours. But patient also has been nothing by mouth. Awaiting further recommendations from surgical services. Current vital signs temp 98.3, heart rate 62, respiratory rate 16, blood pressure 138/81 with a pulse ox 97% on room air. Patient denies chest pain or shortness of breath. Patient denies nausea vomiting or diarrhea. Patient denies any urinary burning or frequency On 06/24/2023 patient was seen and examined on the medical floor she is alert and oriented 3 in no apparent distress, she is feeling better, there is no fever or chills no headache or dizziness no chest pain no shortness of breath no cough, there is no nausea or vomiting, no abdominal pain no diarrhea and no urinary symptoms, patient was started yesterday on liquid diet and is being advanced gradually, will continue to monitor closely Objective - Vital Signs Vital signs: Vital Signs Temp 97.4 F L 06/24/23 07:00 Pulse 67 06/24/23 08:00 Resp 18 06/24/23 08:00 BP 125/73 06/24/23 07:00 Pulse Ox 96 06/24/23 07:00 FiO2 Intake & Output 02/16/24 02/17/24 02/17/24 18:59 06:59 18:59 Intake Total 118 Balance 118 Intake: Oral 118 Other: Voiding Method Toilet Toilet # Voids 1 3 - Exam Head normocephalic Neck supple Lungs clear to auscultation bilaterally no wheezing or crackles Heart regular rate and rhythm S1-S2, no rub or gallop Abdomen is soft nontender nondistended positive bowel sounds no hepatosplenomegaly Extremities no edema Neuro alert and orientated to 3 - Labs CBC & Chem 7: 06/24/23 06:25 06/24/23 06:25 Labs: Abnormal Lab Results - Last 24 Hours (Table) 06/24/23 Range/Units 06:25 Anion Gap 14.10 H (4.00-12.00) mmol/L BUN/Creatinine Ratio 24.17 H (12.00-20.00) Ratio Total Protein 5.7 L (6.2-8.2) g/dL Assessment and Plan Assessment: 1. Intractable nausea and vomiting 2. Recent gastric sleeve procedure 05/22/2023 3. History of GERD 4. History of asthma 5. History of thyroid disorder 6. History of essential hypertension DVT prophylaxis Protonix. GI prophylaxis SCDs Surgical service is consulted Patient currently nothing by mouth Repeat labs ordered
[2023-06-24 19:41] VITALS: RESP 16
[2023-06-25 08:03] VITALS: BP 130/81; PULSE 71; TEMP 98.1
--- NOTE | 2023-06-25 09:30 | P.PN ---
Subjective Progress Note Date: 06/25/23 Patient feels well. She is tolerating diet. She has had no nausea. On exam vital signs appear stable. Abdomen soft. Patient be discharged home today. Objective - Vital Signs Vital signs: Vital Signs Temp 98.1 F 06/25/23 07:00 Pulse 71 06/25/23 08:00 Resp 16 06/25/23 08:00 BP 130/81 06/25/23 07:00 Pulse Ox 96 06/25/23 07:00 FiO2 Intake & Output 06/24/23 06/25/23 06/25/23 18:59 06:59 18:59 Intake Total 118 Balance 118 Intake: Oral 118 Other: Voiding Method Toilet Toilet # Voids 4 2 - Labs CBC & Chem 7: 06/24/23 06:25 06/24/23 06:25 Labs: Abnormal Lab Results - Last 24 Hours (Table) 06/24/23 Range/Units 06:25 Anion Gap 14.10 H (4.00-12.00) mmol/L BUN/Creatinine Ratio 24.17 H (12.00-20.00) Ratio Total Protein 5.7 L (6.2-8.2) g/dL
--- NOTE | 2023-06-25 09:43 | P.DS ---
Providers Date of admission: 06/22/23 04:21 Expected date of discharge: 06/25/23 Attending physician: Farrah Desouza Consults: 06/22/23 04:19 Consult Physician Urgent Consulting Provider: Kaushal Mead Consult Reason/Comments: Recent bariatric surgery Do you want consulting provider notified?: Yes, Notify in am Primary care physician: Farrah Desouza [facility] Course: Discharge diagnosis 1. Intractable nausea and vomiting 2. Recent gastric sleeve procedure 05/22/2023 3. History of GERD 4. History of asthma 5. History of thyroid disorder 6. History of essential hypertension Hospital course This is a 63-year-old female patient who presented with complaints of nausea and vomiting. Patient has past medical history of gastric sleeve procedure on 115.4. Patient reports she has been on a clear liquid diet did have follow-up appointment prior to that she starting earlier this week. Patient denies any recent illness. Patient denies any fevers at home. Patient reports that she is still having loose stools but is maintained on liquid diet. Additional medical history includes asthma, GERD, hypertension, thyroid disorder and gastric sleeve procedure on 05/22/23. Lab work revealing normal white blood cell 5.8. Creatinine 0.5 to bun 16. AST 34, ALT 29, alkaline phosphatase 96. Normal amylase and lipase levels. CT of abdomen and pelvis completed showing no acute findings redemonstrated infarct of the medial. Patient denies chest pain or shortness breath. Patient denies any urinary burning or frequency. Current vital signs temp 97.6, heart rate 96, respiratory rate 18, blood pressure 138/88 with a pulse ox 97%. At this time patient will be admitted. Surgical service is consulted. On 06/23/2023 patient is alert and oriented 3. Patient denies any nausea and vomiting for the past 12 hours. But patient also has been nothing by mouth. Awaiting further recommendations from surgical services. Current vital signs temp 98.3, heart rate 62, respiratory rate 16, blood pressure 138/81 with a pulse ox 97% on room air. Patient denies chest pain or shortness of breath. Patient denies nausea vomiting or diarrhea. Patient denies any urinary burning or frequency On 06/24/2023 patient was seen and examined on the medical floor she is alert and oriented 3 in no apparent distress, she is feeling better, there is no fever or chills no headache or dizziness no chest pain no shortness of breath no cough, there is no nausea or vomiting, no abdominal pain no diarrhea and no urinary symptoms, patient was started yesterday on liquid diet and is being advanced gradually, will continue to monitor closely On 218.4 patient is alert and oriented 3. Patient tolerating diet. Discussed case with the surface patient cleared for discharge. Patient will follow-up PCP and surgical services for further management. Patient denies chest pain or shortness breath. Patient denies nausea vomiting or diarrhea. Patient denies any urinary burning or frequency Patient Condition at Discharge: Stable Plan - Discharge Summary Discharge Rx Participant: No New Discharge Prescriptions: Continue amLODIPine [Norvasc] 5 mg PO DAILY Meclizine [Antivert] 25 mg PO DAILY PRN PRN Reason: Vertigo Budesonide/Formoterol Fumarate [Symbicort 160-4.5 Mcg Inhaler] 1 - 2 puff INHALATION RT-DAILY PRN PRN Reason: Shortness Of Breath Simethicone 40 mg/0.6 ml Drops [Mylicon Drops] 40 mg PO PCHS PRN #30 ml PRN Reason: Gas Omeprazole [PriLOSEC] 40 mg PO DAILY #30 cap Ondansetron Odt [Zofran ODT] 4 mg PO Q8HR PRN #9 tab PRN Reason: Nausea Levothyroxine Sodium [Synthroid] 75 mcg PO DAILY lisinopriL [Zestril] 10 mg PO DAILY Cetirizine HCl 10 mg PO DAILY Albuterol Inhaler [Ventolin Hfa Inhaler] 1 - 2 puff INHALATION RT-Q6H PRN PRN Reason: Wheezing bisacodyL [Dulcolax] 5 mg PO DAILY PRN #10 tab PRN Reason: Constipation Discharge Medication List Cetirizine HCl 10 mg PO DAILY 07/22/22 [History] amLODIPine [Norvasc] 5 mg PO DAILY 07/22/22 [History] lisinopriL [Zestril] 10 mg PO DAILY 07/22/22 [History] Albuterol Inhaler [Ventolin Hfa Inhaler] 1 - 2 puff INHALATION RT-Q6H PRN 05/16/23 [History] Budesonide/Formoterol Fumarate [Symbicort 160-4.5 Mcg Inhaler] 1 - 2 puff INHALATION RT-DAILY PRN 05/16/23 [History] Meclizine [Antivert] 25 mg PO DAILY PRN 05/16/23 [History] Omeprazole [PriLOSEC] 40 mg PO DAILY #30 cap 05/23/23 [Rx] Ondansetron Odt [Zofran ODT] 4 mg PO Q8HR PRN #9 tab 05/23/23 [Rx] Simethicone 40 mg/0.6 ml Drops [Mylicon Drops] 40 mg PO PCHS PRN #30 ml 05/23/23 [Rx] bisacodyL [Dulcolax] 5 mg PO DAILY PRN #10 tab 05/23/23 [Rx] Levothyroxine Sodium [Synthroid] 75 mcg PO DAILY 05/24/23 [History] Follow up Appointment(s)/Referral(s): Farrah Desouza MD [Primary Care Provider] - 1-2 days Discharge Disposition: HOME SELF-CARE
[2023-06-25] MEDS: PANTOPRAZOLE 40 MG TABLET PO SCH (09:45)
== END 2023-06-25 11:19 | disposition home or self-care (01) ==
LOC: EC 20:07 → 6NMEDSUR 06-22 04:21
PROVIDERS: ADMIT Internal Medicine; ATTEND Internal Medicine
DX: R11.2 Nausea with vomiting, unspecified (principal); Z98.84 Bariatric surgery status; K21.9 Gastro-esophageal reflux disease without esophagitis; J45.909 Unspecified asthma, uncomplicated; E07.9 Disorder of thyroid, unspecified; I10 Essential (primary) hypertension; Z87.891 Personal history of nicotine dependence; F32.A Depression, unspecified; Z79.899 Other long term (current) drug therapy; Z79.890 Hormone replacement therapy; Z88.2 Allergy status to sulfonamides; Z79.51 Long term (current) use of inhaled steroids
CPT/HCPCS: 96376; 96361 ×2; 96365; 96375; 99285; 36415; 80053 ×3; 82150; 83690; 85025 ×3; 81001; 74177; G0378 ×4; J0780; J2765; J2405 ×3; J1885; C9113 ×3; Q9967

== ENCOUNTER → 2023-07-20 | Outpatient (CLI) | payer MEDICARE, OTHER ==
[2023-07-20 18:08] LABS: HCT 42.7 % (37.2-50.0); HGB 13.9 g/dL (12.0-17.0); MCH 29.2 pg (27.0-32.0); MCHC 32.6 g/dL (32.0-37.0); MCV 89.7 FL (80.0-97.0); Mean Platelet Volume 10.2 FL (9.5-12.2); NRBC Per 100 WBC 0 X 10*3/uL (0.00-0.01); Platelet Count 245 X 10*3/uL (140-440); RBC 4.76 X 10*6/uL (4.10-5.60); WBC 4.68 X 10*3/uL (4.50-10.00)
[2023-07-20 19:41] LABS: % Iron Saturation 19.49 (12.00-50.00); BUN/Creat Ratio 13.29 Ratio (12.00-20.00); Blood Urea Nitrogen 9.3 mg/dL (9.0-27.0); Chloride 107 mmol/L (96-109); Glucose 102 mg/dL (70-110); Iron 69 UG/DL (50-175); Magnesium 2.1 mg/dL (1.5-2.4); Potassium 4.1 mmol/L (3.5-5.5); Sodium 142 mmol/L (135-145); Total Iron Binding Capacity 354 UG/DL (228-460)
[2023-07-20 19:42] LABS: ALT 25 U/L (8-49); AST 22 U/L (13-35); Albumin 4.4 g/dL (3.8-4.9); Alkaline Phosphatase 87 U/L (41-126); Calcium 9.6 mg/dL (8.7-10.3); Carbon Dioxide 22.3 mmol/L (21.6-31.8); Globulin 2.1 g/dL (1.6-3.3); Total Bilirubin 0.6 mg/dL (0.3-1.2); Total Protein 6.5 g/dL (6.2-8.2)
[2023-07-21 15:26] LABS: Zinc, Serum 66 ug/dL (60-130)
== END | disposition home or self-care (01) ==
LOC: LABWHC1 10:35
PROVIDERS: ATTEND Surgery
DX: E66.01 Morbid (severe) obesity due to excess calories (principal); D50.8 Other iron deficiency anemias; E55.9 Vitamin D deficiency, unspecified; K90.9 Intestinal malabsorption, unspecified
CPT/HCPCS: 36415; 80053; 82306; 82607; 82728; 82746; 83540; 83550; 83735; 84255; 84425; 84443; 84590; 84630; 85027

== ENCOUNTER → 2023-07-31 | Outpatient (CLI) | payer MEDICARE ==
[2023-07-31 12:11] VITALS: BP 122/82; PULSE 75; RESP 13; TEMP 98.2; BMI 30.7
--- NOTE | 2023-07-31 12:13 | P.HPBAR ---
Bariatric H&P - History & Physicial H&P Date: 07/31/23 History & Physicial: Visit/CC: follow up Patient initial contact: Initial weight: Initial weight in pounds: Height: 5 ft 2.5 in Initial BMI: Last weight: Current weight: 77.564 kg Current weight in pounds: 171.00 Current BMI: 30.7 [place] body weight (based on NIH guidelines): 51.029 kg Excess body weight loss: The patient is a 63 year-old F who presents for Bariatric Assessment. Patient presents today for bariatric follow-up. Her weight has been stable. She has minimal complaints of GERD. 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 ORIF LT WRIST. Sleeve gastrectomy 05-22-23 Past Anesthesia/Blood Transfusion Reactions: No Reported Reaction Past Psychological History: Depression Smoking Status: Former smoker Past Alcohol Use History: Rare Additional Past Alcohol Use History / Comment(s): quit 1992 Past Drug Use History: None Reported - Past Family History Mother Family Medical History: Cancer Sister(s) Family Medical History: Cancer Surgical - Exam Vital Signs Temp Pulse Resp BP 98.2 F 75 13 122/82 07/31/23 11:38 07/31/23 11:38 07/31/23 11:38 07/31/23 11:38 - General well developed, well nourished, no distress - Eyes PERRL - ENT normal pinna, normal nares - Neck no masses - Respiratory normal expansion - Cardiovascular Rhythm: regular - Abdomen Abdomen: soft, non tender Bariatric Assessment & Plan Plan: Patient's a well. Her GERD is minimal observed. She'll follow-up in 4 weeks. Bariatric Checklist Checklist: Plan: Checklist: EGD: 1. Hiatal hernia: 2. H. Pylori: HgbA1c: Vitamin D: Smoking: Primary care physician referral: [facility] Psychiatry clearance: Cardiology clearance: Sleep study: Diet journal: VTE risk score: VTE risk level: Rehab needs at discharge:
== END ==
LOC: BARWHC3 10:25
PROVIDERS: ATTEND Surgery
DX: K21.9 Gastro-esophageal reflux disease without esophagitis (principal); E66.01 Morbid (severe) obesity due to excess calories; Z71.3 Dietary counseling and surveillance; Z88.2 Allergy status to sulfonamides; Z87.891 Personal history of nicotine dependence
CPT/HCPCS: 97803; G0463; 99211

== ENCOUNTER → 2023-09-04 | Outpatient (CLI) | payer MEDICARE ==
[2023-09-04 12:19] VITALS: BP 135/90; PULSE 76; RESP 14; TEMP 98.8; BMI 29.5
--- NOTE | 2023-09-12 11:30 | P.HPBAR ---
Bariatric H&P - History & Physicial H&P Date: 09/04/23 History & Physicial: Visit/CC: monthy follow p Patient initial contact: Initial weight: Initial weight in pounds: Height: 5 ft 2.5 in Initial BMI: Last weight: Current weight: 74.389 kg Current weight in pounds: 164.00 Current BMI: 29.5 [place] body weight (based on NIH guidelines): 51.029 kg Excess body weight loss: The patient is a 63 year-old F who presents for Bariatric Assessment.the patient presents today for [place] follow-up. She has been doing well. She has lost more weight since her last visit. Her current BMI is 29.5. the patient has some minimal points of GERD.Patient requesting a screening colonoscopy. 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 ORIF LT WRIST. Sleeve gastrectomy 05-22-23 Past Anesthesia/Blood Transfusion Reactions: No Reported Reaction Past Psychological History: Depression Smoking Status: Former smoker Past Alcohol Use History: Rare Additional Past Alcohol Use History / Comment(s): quit 1992 Past Drug Use History: None Reported - Past Family History Mother Family Medical History: Cancer Sister(s) Family Medical History: Cancer Surgical - Exam Vital Signs Temp Pulse Resp BP 98.8 F 76 14 135/90 09/04/23 11:39 09/04/23 11:39 09/04/23 11:39 09/04/23 11:39 - General well developed, no distress - Eyes PERRL - ENT normal pinna - Neck no masses - Respiratory normal expansion - Cardiovascular Rhythm: regular - Abdomen Abdomen: soft, non tender Bariatric Assessment & Plan Plan: resolving morbid obesity. the patient has minimal GERD. This will be observed. Patient will be scheduled for screening colonoscopy. Bariatric Checklist Checklist: Plan: Checklist: EGD: 1. Hiatal hernia: 2. H. Pylori: HgbA1c: Vitamin D: Smoking: Primary care physician referral: [facility] Psychiatry clearance: Cardiology clearance: Sleep study: Diet journal: VTE risk score: VTE risk level: Rehab needs at discharge:
== END ==
LOC: BARWHC3 10:26
PROVIDERS: ATTEND Surgery
DX: K21.9 Gastro-esophageal reflux disease without esophagitis (principal); E66.01 Morbid (severe) obesity due to excess calories; Z87.891 Personal history of nicotine dependence; Z88.2 Allergy status to sulfonamides; Z68.29 Body mass index [BMI] 29.0-29.9, adult; Z98.84 Bariatric surgery status; Z90.3 Acquired absence of stomach [part of]
CPT/HCPCS: 99211

== ENCOUNTER 2023-11-13 12:07 | Day surgery (SDC) | payer MEDICARE ==
[2023-11-08 08:54] VITALS: BMI 29.2
[~2023-11-13 12:07] MED LIST changes: -ENOXAPARIN 40 MG/0.4 ML SYRINGE SQ PRN; +LIDOCAINE 1% (10MG/ML) FOR IV START INTRADERMA PRN; +ONDANSETRON 4 MG/2 ML VIAL IVP PRN
[2023-11-13 14:15] VITALS: TEMP 97.7
[2023-11-13] MEDS: IV FLUID CONTINUATION 1,000 ML IV ONE (14:23)
[2023-11-13] MEDS: LACTATED RINGERS 1,000 ML IV SCH (14:23)
[2023-11-13] MEDS ORDERED: PROPOFOL 10 MG/ML 20 ML VIAL IV ONE (15:14)
[2023-11-13] MEDS ORDERED: GLYCOPYRROLATE 0.2 MG/ML 2 ML VIAL ONE (15:14)
[2023-11-13] MEDS ORDERED: LIDOCAINE 1% INJ 10MG/ML (20 ML MDV) ONE (15:14)
--- NOTE | 2023-11-13 15:16 | P.GSHP ---
History of Present Illness H&P Date: 11/13/23 Chief Complaint: Screening colonoscopy This is a 63-year-old female presents today for screening colonoscopy. Patient denies any significant GI complaints. 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 History of Any Multi-Drug Resistant Organisms: None Reported Past Surgical History: Adenoidectomy, Appendectomy, Bariatric Surgery, Orthopedic Surgery, Tonsillectomy Additional Past Surgical History / Comment(s): Ectopic X2, D&C, laproscopic surgery, colonoscopy X2, ORIF left wrist, sleeve gastrectomy 05-22-23. Past Anesthesia/Blood Transfusion Reactions: No Reported Reaction, Motion Sickness Additional Past Anesthesia/Blood Transfusion Reaction / Comment(s): Vertigo. Slow to wake up after wrist surgery. Past Psychological History: Depression Smoking Status: Former smoker Past Alcohol Use History: Rare Additional Past Alcohol Use History / Comment(s): Quit smoking in 1992. No alcohol since gastric bypass, 05/22/23. Past Drug Use History: None Reported - Past Family History Mother Family Medical History: Cancer Sister(s) Family Medical History: Cancer Medications and Allergies Home Medications Medication Instructions Recorded Confirmed Type Cetirizine HCl 10 mg PO QAM 07/22/22 11/13/23 History amLODIPine [Norvasc] 5 mg PO QAM 07/22/22 11/13/23 History lisinopriL [Zestril] 10 mg PO QAM 07/22/22 11/13/23 History Albuterol Inhaler [Ventolin Hfa 1 - 2 puff INHALATION RT-Q6H PRN 05/16/23 11/13/23 History Inhaler] Budesonide/Formoterol Fumarate 1 - 2 puff INHALATION RT-DAILY PRN 05/16/23 11/13/23 History [Symbicort 160-4.5 Mcg Inhaler] Meclizine [Antivert] 25 mg PO DAILY PRN 05/16/23 11/13/23 History Levothyroxine Sodium [Synthroid] 75 mcg PO QAM 05/24/23 11/13/23 History Omeprazole [PriLOSEC] 40 mg PO QAM 11/08/23 11/13/23 History Allergies Allergy/AdvReac Type Severity Reaction Status Date / Time Sulfa (Sulfonamide Allergy Rash/Hives Verified 11/13/23 14:10 Antibiotics) Surgical - Exam Vital Signs Temp Pulse Resp BP Pulse Ox 97.7 F 76 18 165/90 98 11/13/23 14:09 11/13/23 14:09 11/13/23 14:09 11/13/23 14:09 11/13/23 14:09 - General well developed, well nourished, no distress - Eyes PERRL - ENT normal pinna - Neck no masses - Respiratory normal expansion - Cardiovascular Rhythm: regular - Abdomen Abdomen: soft, non tender Assessment and Plan Assessment: Will perform screening colonoscopy
--- NOTE | 2023-11-13 15:34 | P.OP ---
Date of Procedure: 11/13/23 Preoperative Diagnosis: Screening colonoscopy screening colonoscopy Postoperative Diagnosis: Normal colon Procedure(s) Performed: Colonoscopy Anesthesia: MAC Surgeon: Kaushal Mead Pathology: none sent Condition: stable Disposition: PACU Description of Procedure: The patient was placed on the endoscopy table in the lateral position. She received IV sedation. Digital rectal exam was performed. This revealed no abnormalities. The flexible colonoscope was then placed into anus and passed throughout the entire colon. The ileocecal valve was visualized. The cecum, ascending and transverse colon appeared normal. The descending and sigmoid colon appeared normal. The scope was then back to the rectum and this appeared normal. The scope was then withdrawn from the patient.
[2023-11-13 15:56] VITALS: BP 136/84; PULSE 96; RESP 16
== END 2023-11-13 16:08 ==
LOC: ORWHC2ENDO 12:07
PROVIDERS: ATTEND Surgery
DX: Z12.11 Encounter for screening for malignant neoplasm of colon (principal); I10 Essential (primary) hypertension; J45.909 Unspecified asthma, uncomplicated; K21.9 Gastro-esophageal reflux disease without esophagitis; E07.9 Disorder of thyroid, unspecified; F32.A Depression, unspecified; Z79.51 Long term (current) use of inhaled steroids; Z79.890 Hormone replacement therapy; Z87.891 Personal history of nicotine dependence; Z88.1 Allergy status to other antibiotic agents; Z88.2 Allergy status to sulfonamides; Z90.49 Acquired absence of other specified parts of digestive tract; Z90.89 Acquired absence of other organs; Z98.890 Other specified postprocedural states
CPT/HCPCS: J2001; J2704; J1596; G0121

== ENCOUNTER → 2023-12-25 | Outpatient (CLI) | payer MEDICARE, OTHER | LOC: BARWHC3 10:30 | PROVIDERS: ATTEND Surgery | DX: E66.01 Morbid (severe) obesity due to excess calories (principal); Z68.26 Body mass index [BMI] 26.0-26.9, adult; Z88.2 Allergy status to sulfonamides | CPT/HCPCS: 99211 ==

== ENCOUNTER → 2024-01-22 | Outpatient (CLI) | payer MEDICARE ==
[2024-01-22 08:51] VITALS: BP 116/77; PULSE 69; RESP 16; TEMP 98.4; BMI 26.0
== END ==
LOC: BARWHC3 08:31
PROVIDERS: ATTEND Surgery
DX: E66.01 Morbid (severe) obesity due to excess calories (principal); Z68.26 Body mass index [BMI] 26.0-26.9, adult; Z88.2 Allergy status to sulfonamides
CPT/HCPCS: 99211

== ENCOUNTER → 2024-02-26 | Outpatient (CLI) | payer MEDICARE ==
[2024-02-26 09:17] VITALS: BP 131/82; PULSE 63; RESP 16; TEMP 98.2; BMI 26.4
--- NOTE | 2024-02-26 17:18 | P.HPBAR ---
Bariatric H&P - History & Physicial H&P Date: 02/26/24 History & Physicial: Visit/CC: F/U Patient initial contact: Initial weight: Initial weight in pounds: Height: 5 ft 2.5 in Initial BMI: Last weight: Current weight: 66.678 kg Current weight in pounds: 147.00 Current BMI: 26.4 [place] body weight (based on NIH guidelines): 51.029 kg Excess body weight loss: The patient is a 63 year-old F who presents for Bariatric Assessment. Patient presents today for sleeve gastrectomy follow-up. Her weight has been unchanged. She has had minimal gerd. 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 History of Any Multi-Drug Resistant Organisms: None Reported Past Surgical History: Adenoidectomy, Appendectomy, Bariatric Surgery, Orthopedic Surgery, Tonsillectomy Additional Past Surgical History / Comment(s): Ectopic X2, D&C, laproscopic surgery, colonoscopy X2, ORIF left wrist, sleeve gastrectomy 05-22-23. Past Anesthesia/Blood Transfusion Reactions: No Reported Reaction, Motion Sickness Additional Past Anesthesia/Blood Transfusion Reaction / Comm: Vertigo. Slow to wake up after wrist surgery. Past Psychological History: Depression Smoking Status: Former smoker Past Alcohol Use History: Rare Additional Past Alcohol Use History / Comment(s): Quit smoking in 1992. No alcohol since gastric bypass, 05/22/23. Past Drug Use History: None Reported - Past Family History Mother Family Medical History: Cancer Sister(s) Family Medical History: Cancer Surgical - Exam Vital Signs Temp Pulse Resp BP 98.2 F 63 16 131/82 02/26/24 08:30 02/26/24 08:30 02/26/24 08:30 02/26/24 08:30 - General well developed, well nourished, no distress - Eyes PERRL - ENT normal pinna - Neck no masses - Respiratory normal expansion - Cardiovascular Rhythm: regular - Abdomen Abdomen: soft, non tender Bariatric Assessment & Plan Plan: Patient remained stable. Her gerd is minimal and will be observed. She will follow-up in 4 weeks. Bariatric Checklist Checklist: Plan: Checklist: EGD: 1. Hiatal hernia: 2. H. Pylori: HgbA1c: Vitamin D: Smoking: Primary care physician referral: [facility] Psychiatry clearance: Cardiology clearance: Sleep study: Diet journal: VTE risk score: VTE risk level: Rehab needs at discharge:
== END ==
LOC: BARWHC3 08:30
PROVIDERS: ATTEND Surgery
CPT/HCPCS: 97803; 99211

== ENCOUNTER → 2024-05-27 | Outpatient (CLI) | payer MEDICARE ==
[2024-05-27 09:01] VITALS: BMI 25.1
[2024-05-27 09:23] VITALS: BP 119/79; PULSE 74; RESP 16; TEMP 97.7
[2024-05-27 14:57] LABS: HCT 43.4 % (37.2-50.0); HGB 14.3 g/dL (12.0-17.0); MCHC 32.9 g/dL (32.0-37.0); Mean Platelet Volume 10.2 FL (9.5-12.2); NRBC Per 100 WBC 0 X 10*3/uL (0.00-0.01); Platelet Count 263 X 10*3/uL (140-440); RBC 4.77 X 10*6/uL (4.10-5.60); RDW 12.7 % (11.5-14.5)
[2024-05-27 16:36] LABS: % Iron Saturation 29.23 (12.00-50.00); ALT 14 U/L (8-49); AST 18 U/L (13-35); Albumin 4.3 g/dL (3.8-4.9); Albumin/Globulin Ratio 1.95 Ratio (1.60-3.17); Alkaline Phosphatase 106 U/L (41-126); BUN/Creat Ratio 13.57 Ratio (12.00-20.00); Blood Urea Nitrogen 9.5 mg/dL (9.0-27.0); Calcium 9.7 mg/dL (8.7-10.3); Carbon Dioxide 26.3 mmol/L (21.6-31.8); Chloride 105 mmol/L (96-109); Ferritin 96.7 ng/mL (10.0-322.0); Globulin 2.2 g/dL (1.6-3.3); Glucose 90 mg/dL (70-110); Iron 102 UG/DL (50-175); Magnesium 2.1 mg/dL (1.5-2.4); Sodium 143 mmol/L (135-145); Total Bilirubin 0.5 mg/dL (0.3-1.2); Total Iron Binding Capacity 349 UG/DL (228-460); Total Protein 6.5 g/dL (6.2-8.2)
--- NOTE | 2024-05-27 16:52 | P.HPBAR ---
Bariatric H&P - History & Physicial H&P Date: 05/27/24 History & Physicial: Visit/CC: f/u Patient initial contact: Initial weight: Initial weight in pounds: Height: 5 ft 3.5 in Initial BMI: Last weight: Current weight: 65.317 kg Current weight in pounds: 144.00 Current BMI: 25.1 [employer] body weight (based on NIH guidelines): 53.297 kg Excess body weight loss: The patient is a 63 year-old F who presents for Bariatric Assessment. Patient presents today for bariatric follow-up. She is requesting a panniculi. Patient has had excellent weight loss. She states she has minimal gerd. Her weight is stable. She currently weighs 144 pounds. 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 History of Any Multi-Drug Resistant Organisms: None Reported Past Surgical History: Adenoidectomy, Appendectomy, Bariatric Surgery, Orthopedic Surgery, Tonsillectomy Additional Past Surgical History / Comment(s): Ectopic X2, D&C, l aproscopic surgery, colonoscopy X2, ORIF left wrist, sleeve gastrectomy 05-22-23. Past Anesthesia/Blood Transfusion Reactions: No Reported Reaction, Motion Sickness Additional Past Anesthesia/Blood Transfusion Reaction / Comm: Vertigo. Slow to wake up after wrist surgery. Past Psychological History: Depression Smoking Status: Former smoker Past Alcohol Use History: Rare Additional Past Alcohol Use History / Comment(s): Quit smoking in 1992. No alc ohol since gastric bypass, 05/22/23. Past Drug Use History: None Reported - Past Family History Mother Family Medical History: Cancer Sister(s) Family Medical History: Cancer Surgical - Exam Vital Signs Temp Pulse Resp BP 97.7 F 74 16 119/79 05/27/24 08:39 05/27/24 08:39 05/27/24 08:39 05/27/24 08:39 - General well developed, well nourished, no distress - Eyes PERRL - ENT normal pinna - Neck no masses - Respiratory normal expansion - Abdomen Large pannus Abdomen: soft, non tender Results - Labs 05/27/24 09:34 05/27/24 09:34 Abnormal Lab Results - Last 24 Hours (Table) 05/27/24 05/27/24 Range/Units 09:34 09:34 Vitamin D 25-Hydroxy 28.0 L (30.0-100.0) ng/mL Folate 4.00 L (4.40-31.00) ng/mL Diabetes panel 05/27/24 Range/Units 09:34 Sodium 143 (135-145) mmol/L Potassium 4.0 (3.5-5.5) mmol/L Chloride 105 (96-109) mmol/L Carbon Dioxide 26.3 (21.6-31.8) mmol/L BUN 9.5 (9.0-27.0) mg/dL Creatinine 0.7 (0.6-1.5) mg/dL Glucose 90 (70-110) mg/dL Calcium 9.7 (8.7-10.3) mg/dL AST 18 (13-35) U/L ALT 14 (8-49) U/L Alkaline Phosphatase 106 (41-126) U/L Total Protein 6.5 (6.2-8.2) g/dL Albumin 4.3 (3.8-4.9) g/dL Thyroid panel 05/27/24 Range/Units 09:34 TSH 3.170 (0.350-5.500) UIU/ML Calcium panel 05/27/24 Range/Units 09:34 Calcium 9.7 (8.7-10.3) mg/dL Albumin 4.3 (3.8-4.9) g/dL Pituitary panel 05/27/24 Range/Units 09:34 Sodium 143 (135-145) mmol/L Potassium 4.0 (3.5-5.5) mmol/L Chloride 105 (96-109) mmol/L Carbon Dioxide 26.3 (21.6-31.8) mmol/L BUN 9.5 (9.0-27.0) mg/dL Creatinine 0.7 (0.6-1.5) mg/dL Glucose 90 (70-110) mg/dL Calcium 9.7 (8.7-10.3) mg/dL TSH 3.170 (0.350-5.500) UIU/ML Adrenal panel 05/27/24 Range/Units 09:34 Sodium 143 (135-145) mmol/L Potassium 4.0 (3.5-5.5) mmol/L Chloride 105 (96-109) mmol/L Carbon Dioxide 26.3 (21.6-31.8) mmol/L BUN 9.5 (9.0-27.0) mg/dL Creatinine 0.7 (0.6-1.5) mg/dL Glucose 90 (70-110) mg/dL Calcium 9.7 (8.7-10.3) mg/dL Total Bilirubin 0.5 (0.3-1.2) mg/dL AST 18 (13-35) U/L ALT 14 (8-49) U/L Alkaline Phosphatase 106 (41-126) U/L Total Protein 6.5 (6.2-8.2) g/dL Albumin 4.3 (3.8-4.9) g/dL Bariatric Assessment & Plan Plan: Excellent weight loss. Patient lost in excess of 100 pounds. Patient will be scheduled for panniculectomy. Bariatric Checklist Checklist: Plan: Checklist: EGD: 1. Hiatal hernia: 2. H. Pylori: HgbA1c: Vitamin D: Smoking: Primary care physician referral: [facility] Psychiatry clearance: Cardiology clearance: Sleep study: Diet journal: VTE risk score: VTE risk level: Rehab needs at discharge:
[2024-05-28 13:48] LABS: Zinc, Serum 100 ug/dL (60-130)
[2024-05-29 06:33] LABS: Vitamin A 51 ug/dL (38-106)
[2024-05-29 07:01] LABS: Vit B1(Thiamine) 57 ug/L (38-122)
== END ==
LOC: BARWHC3 08:38
PROVIDERS: ATTEND Surgery
DX: L98.7 Excessive and redundant skin and subcutaneous tissue (principal); Z88.2 Allergy status to sulfonamides
CPT/HCPCS: 84255; 84425; 80053; 82607; 82728; 82746; 83540; 83550; 83735; 84443; 84590; 84630; 85027; 82306; 93005; 36415; G0463; 99211

== ENCOUNTER → 2024-07-03 | Outpatient (CLI) | payer MEDICARE ==
--- NOTE | 2024-07-03 14:29 | MM ---
Reason for Exam: Screening (asymptomatic). Last screening mammogram was performed 12 month(s) ago. Patient History: Menarche at age 12. First Full-Term at age 15. Postmenopausal. Patient has history of breast feeding. Paternal grandmother had breast cancer, age 60. Risk Values: Imelda 5 year model risk: 1.2%. NCI Lifetime model risk: 4.6%. Prior Study Comparison: 04/08/2021 Bilateral Screening Mammogram, [facility]. 04/21/2022 Bilateral MG screening mammo w CAD, [facility]. 06/09/2023 Bilateral MG 3D screening mammo w/cad, [facility]. Tissue Density: The breasts are heterogeneously dense, which may obscure small masses. Findings: Analyzed By CAD. Right breast: There is no suspicious group of microcalcifications or new suspicious mass. Left breast: There is no suspicious group of microcalcifications or new suspicious mass. Overall Assessment: Negative, BI-RAD 1 Management: Screening Mammogram of both breasts in [address] [facility] will attempt to contact patient to return for supplemental views and ultrasound if indicated. Patient should continue monthly self-breast exams. A clinical breast exam by your physician is recommended on an annual basis. This exam should not preclude additional follow-up of suspicious palpable abnormalities. Note on Imelda scores and lifetime risk: 1. A Imelda score greater than 3% is considered moderate risk. If this is the case, consider specialist referral to assess eligibility for a risk reducing agent. 2. If overall lifetime risk for the development of breast cancer is 20% or higher, the patient may qualify for future screening with alternating mammogram and breast MRI. [facility], , 07/03/2024 9:07 AM. Electronically signed and approved by: Gabriel Winn DO
== END | disposition home or self-care (01) ==
LOC: RADMAMWWP 08:47
PROVIDERS: ATTEND Internal Medicine
DX: Z12.31 Encounter for screening mammogram for malignant neoplasm of breast (principal); R92.333 Mammographic heterogeneous density, bilateral breasts; Z78.0 Asymptomatic menopausal state; Z80.3 Family history of malignant neoplasm of breast
CPT/HCPCS: 77063; 77067

== ENCOUNTER → 2024-07-22 | Outpatient (CLI) | payer MEDICARE ==
[2024-07-22 13:40] LABS: Basophils # (A) 0.1 k/uL (0-0.2); Basophils % (A) 1 %; Eosinophils # (A) 0.1 k/uL (0-0.7); Eosinophils % (A) 2 %; HCT 47.1 % (34.0-46.0); HGB 14.5 gm/dL (11.4-16.0); Lymphocytes # (A) 1.6 k/uL (1.0-4.8); Lymphocytes % (A) 32 %; MCH 29.2 pg (25.0-35.0); MCHC 30.7 g/dL (31.0-37.0); MCV 95.1 fL (80.0-100.0); Mean Platelet Volume 7.6; Monocytes # (A) 0.2 k/uL (0-1.0); Monocytes % (A) 5 %; Neutrophils # (A) 2.8 k/uL (1.3-7.7); Neutrophils % (A) 59 %; Platelet Count 283 k/uL (150-450); RBC 4.95 m/uL (3.80-5.40); RDW 13.4 % (11.5-15.5); WBC 4.9 k/uL (3.8-10.6)
[2024-07-22 15:41] LABS: BUN/Creat Ratio 12.89 Ratio (12.00-20.00); Blood Urea Nitrogen 11.6 mg/dL (9.0-27.0); Chloride 106 mmol/L (96-109); Chol/HDL Ratio 3.44 Ratio; Glucose 96 mg/dL (70-110); LDL Cholesterol,Calculated 112.9 mg/dL (0.0-131.0); Potassium 3.5 mmol/L (3.5-5.5); Sodium 144 mmol/L (135-145)
[2024-07-22 15:42] LABS: ALT 12 U/L (8-49); AST 19 U/L (13-35); Albumin 4.4 g/dL (3.8-4.9); Alkaline Phosphatase 105 U/L (41-126); Calcium 9.7 mg/dL (8.7-10.3); Carbon Dioxide 24.5 mmol/L (21.6-31.8); Total Bilirubin 0.6 mg/dL (0.3-1.2); Total Protein 6.4 g/dL (6.2-8.2)
== END | disposition home or self-care (01) ==
LOC: LABWHC1 12:29
PROVIDERS: ATTEND Internal Medicine
DX: I10 Essential (primary) hypertension (principal); E03.9 Hypothyroidism, unspecified; E55.9 Vitamin D deficiency, unspecified; J45.909 Unspecified asthma, uncomplicated; K21.9 Gastro-esophageal reflux disease without esophagitis; Z79.899 Other long term (current) drug therapy
CPT/HCPCS: 36415; 80053; 80061; 82306; 84443; 85025

== ENCOUNTER → 2024-07-29 | Outpatient (CLI) | payer MEDICARE ==
[2024-07-29 10:09] VITALS: BP 111/75; PULSE 69; RESP 16; TEMP 97.9; BMI 25.5
--- NOTE | 2024-07-29 13:56 | P.HPBAR ---
Bariatric H&P - History & Physicial H&P Date: 07/29/24 History & Physicial: Visit/CC: f/u Patient initial contact: Initial weight: Initial weight in pounds: Height: 5 ft 2.5 in Initial BMI: Last weight: Current weight: 64.41 kg Current weight in pounds: 142.00 Current BMI: 25.5 [place] body weight (based on NIH guidelines): 51.13 kg Excess body weight loss: The patient is a 64 year-old F who presents for Bariatric Assessment. Patient presents today for bariatric follow-up. She is doing well. She has minimal complaints of GERD. 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 History of Any Multi-Drug Resistant Organisms: None Reported Past Surgical History: Adenoidectomy, Appendectomy, Bariatric Surgery, Orthopedic Surgery, Tonsillectomy Additional Past Surgical History / Comment(s): Ectopic X2, D&C, laproscopic surgery, colonoscopy X2, ORIF left wrist, sleeve gastrectomy 05-22-23. Past Anesthesia/Blood Transfusion Reactions: No Reported Reaction, Motion Sickness Additional Past Anesthesia/Blood Transfusion Reaction / Comm: Vertigo. Slow to wake up after wrist surgery. Past Psychological History: Depression Smoking Status: Former smoker Past Alcohol Use History: Rare Additional Past Alcohol Use History / Comment(s): Quit smoking in 1992. No alcohol since gastric bypass, 05/22/23. Past Drug Use History: None Reported - Past Family History Mother Family Medical History: Cancer Sister(s) Family Medical History: Cancer Surgical - Exam Vital Signs Temp Pulse Resp BP 97.9 F 69 16 111/75 07/29/24 10:04 07/29/24 10:04 07/29/24 10:04 07/29/24 10:04 - General well developed, well nourished - Eyes PERRL - ENT normal pinna - Neck no masses - Respiratory normal expansion - Cardiovascular Rhythm: regular - Abdomen Abdomen: soft, non tender Bariatric Assessment & Plan Plan: Patient is doing well. Her weight is remained stable. She will be observed. She will follow-up in 4 weeks. Bariatric Checklist Checklist: Plan: Checklist: EGD: 1. Hiatal hernia: 2. H. Pylori: HgbA1c: Vitamin D: Smoking: Primary care physician referral: [facility] Psychiatry clearance: Cardiology clearance: Sleep study: Diet journal: VTE risk score: VTE risk level: Rehab needs at discharge:
== END ==
LOC: BARWHC3 09:27
PROVIDERS: ATTEND Surgery
DX: E66.01 Morbid (severe) obesity due to excess calories (principal); Z68.25 Body mass index [BMI] 25.0-25.9, adult; Z88.2 Allergy status to sulfonamides
CPT/HCPCS: 99211

== ENCOUNTER → 2024-11-11 | Outpatient (CLI) | payer MEDICARE ==
[2024-11-11 13:23] VITALS: BP 126/76; PULSE 72; TEMP 98; BMI 25.0
--- NOTE | 2024-11-14 16:06 | P.HPBAR ---
Bariatric H&P - History & Physicial H&P Date: 11/11/24 History & Physicial: Visit/CC: sleeve follow up Patient initial contact: Initial weight: Initial weight in pounds: Height: 5 ft 2.5 in Initial BMI: Last weight: Current weight: 63.049 kg Current weight in pounds: 139.00 Current BMI: 25.0 [place] body weight (based on NIH guidelines): 51.25 kg Excess body weight loss: The patient is a 64 year-old F who presents for Bariatric Assessment. patient presents today forK21.9 She otherwise feels well. She is on Excellent weight loss. 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 History of Any Multi-Drug Resistant Organisms: None Reported Past Surgical History: Adenoidectomy, Appendectomy, Bariatric Surgery, Orthopedic Surgery, Tonsillectomy Additional Past Surgical History / Comment(s): Ectopic X2, D&C, laproscopic surgery, colonoscopy X2, ORIF left wrist, sleeve gastrectomy 05-22-23. Past Anesthesia/Blood Transfusion Reactions: No Reported Reaction, Motion Sickness Additional Past Anesthesia/Blood Transfusion Reaction / Comm: Vertigo. Slow to wake up after wrist surgery. Past Psychological History: Depression Smoking Status: Former smoker Past Alcohol Use History: Rare Additional Past Alcohol Use History / Comment(s): Quit smoking in 1992. No alcohol since gastric bypass, 05/22/23. Past Drug Use History: None Reported - Past Family History Mother Family Medical History: Cancer Sister(s) Family Medical History: Cancer Surgical - Exam Vital Signs Temp Pulse BP 98 F 72 126/76 11/11/24 13:20 11/11/24 13:20 11/11/24 13:20 - General well developed, well nourished, no distress - Eyes PERRL - ENT normal pinna, normal nares - Cardiovascular Rhythm: regular - Abdomen Abdomen: soft, non tender Bariatric Assessment & Plan Plan: GERD. Patient's symptoms are minimal and will be observed. She will follow-up in 4 weeks. Bariatric Checklist Checklist: Plan: Checklist: EGD: 1. Hiatal hernia: 2. H. Pylori: HgbA1c: Vitamin D: Smoking: Primary care physician referral: [facility] Psychiatry clearance: Cardiology clearance: Sleep study: Diet journal: VTE risk score: VTE risk level: Rehab needs at discharge:
== END ==
LOC: BARWHC3 09:29
PROVIDERS: ATTEND Surgery
DX: E66.01 Morbid (severe) obesity due to excess calories (principal); Z68.25 Body mass index [BMI] 25.0-25.9, adult; Z88.2 Allergy status to sulfonamides
CPT/HCPCS: 99211